=== PATIENT | female | born 1975 ===

== ENCOUNTER 2023-06-21 12:01 | Inpatient (IN) | payer OTHER ==
--- OUTSIDE RECORDS SUMMARY | 2023-06-21 16:52 | XMS REPORT | Continuity of Care Document ---
:1975 Author Organization [facility] t Address [address] [place] [address] [address] [place] [address] Care Team Providers Name Role Phone KHADAR NAV Weller Primary Care Physician Unavailable [id number] Attending Clinician Unavailable FAINA GEORGE Attending Clinician Unavailable [place] Attending Clinician Unavailable ERWIN ESCOBEDO Attending Clinician Unavailable [place] MD Attending Clinician [phone] Faina George MD Attending Clinician Unavailable Miguel Alarcon MD Attending Clinician SHEILA BUSH Attending Clinician Unavailable Javier Orozco MD Attending Clinician [phone] Lenny Price Attending Clinician [phone] MD MAIK Attending Clinician Unavailable LENNY FREITAS Attending Clinician Unavailable YANETH MORALES Attending Clinician Unavailable DARWIN FEILX Attending Clinician Unavailable [id number] Attending Clinician Unavailable Bala Alberts DO Attending Clinician BALA ALBERTS Attending Clinician Unavailable [id number] Admitting Clinician Unavailable FAINA GEORGE Admitting Clinician Unavailable BALA ALBERTS Admitting Clinician Unavailable Payers Payer Name Policy Type Policy Number Effective Date Expiration Date S ource MISZ MISZ [id number] [employer] EXCHANGE [id number] 2022 00:00:00 [employer] MP CVS 9 [id number] 2022 SILVER 2: 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 ON [facility] [id number] 2017 CHOICE MEDICAID 00:00:00 Problems Condition Condition Condition Status Onset Resolution Last Treating Co mments Source Name Details Category Date Date Treatment Clinician Date Acute pain Acute pain Disease Active [facility]11 [facility] 00 Center Infection Infection Disease Active [facility] following following 06-11 [facility] a a 00:00: Medical procedure, procedure, 00 Ce nter deep deep incisional incisional surgical surgical site, site, initial initial encounter encounter Closed Closed Disease Active [facility] displaced displaced 05-05 [facility] bicondylar bicondylar 00:00: Me dical fracture fracture 00 Center of right of right tibia, tibia, initial initial encounter encounter Fracture Fracture Disease [facility] Center Closed Closed Disease Active [facility] bicondylar bicondylar 05-05 Dayan[facility] kes fracture fracture 00:00: Medica l of right of right 00 Center tibial tibial plateau plateau Prediabete Prediabete Disease Active K elsey s s 1-19 Seybold 00:00: - 00 Externa l Follow-up Follow-up Disease Active Overview: [facility] n, n, 00:00: g of this [place] following following 00 note Medi zeny other other might be Branch surgery surgery different from the original. D & C No known No known Disease Kelse y active active Seybold problems problems - Externa l Allergies, Adverse Reactions, Alerts Allergy Allergy Status Severity Reaction(s) Onset Inactive Treating Comm ents Source Name Type Date Date Clinician PENICILL Allergy Active High Hives [facility] IN 05-04 [facility] 00:[facility]: Medical 00 Center SULFAMET Allergy Active [facility] HOXAZOLE 05-04 [facility] -TRIMETH 00:00: Medical OPRIM 00 Center Sulfamet Propensi Active diarrhea [facility] hoxazole ty to 05-04 [facility] -Trimeth adverse 00:00: Medical oprim reaction 00 Center s Penicill Propensi Active Hives As an [facility] in ty to 05-04 [facility] adverse 00:00: Medical reaction 00 Center s Penicill Propensi Active Rash Univer s ins ty to 05-14 ity of adverse 00:00: [place] reaction 00 Medical s Branch PENICILL Drug Active Rash Univers INS Class 8-17 ity of 00:00: [place] 00 Medical Branch SULFA Drug Active Swelling Univers (SULFONA Class 8-17 ity of MIDE 00:00: [place] ANTIBIOT 00 Medical ICS) Branch Penicill Propensi Active Rash Nubia ins ty to 05-14 Seybold adverse 00:00: - reaction 00 Externa s l Sulfa Propensi Active Swelling Nubia Drugs ty to 05-14 Seybold adverse 00:00: - reaction 00 Externa s l NO KNOWN Allergy Active [facility] Social History Social Habit Start Date Stop Date Quantity Comments Source Gender identity Nubia burk - External Sexual orientation Nubia [place] - External History of tobacco Cigarette [facility] Alcohol intake 2023-06-15 2023-06-15 [facility]00 [facility] alcohol Medical Center (finding) Exposure to 2023-06-01 2023-06-[address] [facility] SARS-CoV-2 (event) 00:00:00 18:29:00 [facility] Tobacco use and 2023-05-04 2023-05-04 [address] [facility] exposure 00:00:00 00:00:00 non-user Medical Center Alcohol Comment 2023-05-04 2023-05-[address] Dayanara kes 00:00:00 00:00:00 Medical Center History of Social 2022-10-14 2022-10-14 [place]ubia [place] function 00:00:00 00:00:00 - External Cigarettes smoked 2022-10-14 2022-10-14 Nubia [place] current (pack per 00:00:00 00:00:00 - Exter nal day) - Reported Cigarette 2022-10-14 2022-10-14 Nubia [place] pack-years 00:00:00 00:00:00 - External Sex Assigned At [birth year] [facility] krunals 00:00:00 00:00:00 Medical Center Smoking Status Start Date Stop Date Source Smokes tobacco daily 2023-05-04 00:00:00 [facility] Medications Ordered Filled Start Stop Current Ordering Indication Dosage Frequency Signature Comments Components Source Medication Medication Date Date Medication? Clinician (SIG) Name Name acetaminoph Yes 500mg Take [address] [facility] en 9-24 tablet [facility] (TYLENOL) 15:40: (500 mg Medic al 500 MG 59 total) by Center tablet mouth every 6 (six) hours as needed for Pain. aspirin 325 0 Yes 325mg QD Take [address] [facility] [address] MG tablet 9-24 tablet [facility] 15:40: (325 mg Medical 59 total) by Center mouth daily. levothyroxi 0 Yes 88ug Take [address] [facility] ne 9-24 tablet (88 [facility] (SYNTHROID, 15:40: mcg total) Medical LEVOTHROID) 59 by mouth Cent er 88 MCG Every tablet morning on an empty stomach. docusate 0 Yes 100mg Q.5D Take [address] [facility] sodium 9-24 capsule [facility] (COLACE) 15:40: (100 mg Medica l 100 MG 59 total) by Center capsule mouth 2 (two) times daily. acetaminoph Yes 500mg Take [address] [facility] en 8-13 tablet [facility] (TYLENOL) 13:18: (500 mg Medic al 500 MG 27 total) by Center tablet mouth every 6 (six) hours as needed for Pain. aspirin 325 0 Yes 325mg QD Take [address] [facility] MG tablet 8-13 tablet [facility] 13:18: (325 mg Medical 27 total) by Center mouth daily. levothyroxi 2022-0 Yes 88ug Take [address] [facility] ne 8-13 tablet (88 [facility] (SYNTHROID, 13:18: mcg total) Medical LEVOTHROID) 27 by mouth Cent er 88 MCG Every tablet morning on an empty stomach. docusate 2022-0 Yes 100mg Q.5D Take [address] [facility] sodium 8-13 capsule [facility] (COLACE) 13:18: (100 mg Medica l 100 MG 27 total) by Center capsule mouth 2 (two) times daily. acetaminoph 2023-0 Yes 500mg Take [address] [facility] en 8-13 tablet [facility] (TYLENOL) 13:18: (500 mg Medic al 500 MG 27 total) by Center tablet mouth every 6 (six) hours as needed for Pain. aspirin 325 2023-0 Yes 325mg QD Take [address] [facility] MG tablet 8-13 tablet [facility] 13:18: (325 mg Medical 27 total) by Center mouth daily. levothyroxi 2023-0 Yes 88ug Take [address] [facility] ne 8-13 tablet (88 [facility] (SYNTHROID, 13:18: mcg total) Medical LEVOTHROID) 27 by mouth Cent er 88 MCG Every tablet morning on an empty stomach. docusate 2023-0 Yes 100mg Q.5D Take [address] [facility] sodium 8-13 capsule [facility] (COLACE) 13:18: (100 mg Medica l 100 MG 27 total) by Center capsule mouth 2 (two) times daily. acetaminoph 2023-0 Yes 500mg Take [address] [facility] en 8-13 tablet [facility] (TYLENOL) 13:18: (500 mg Medic al 500 MG 27 total) by Center tablet mouth every 6 (six) hours as needed for Pain. aspirin 325 3-0 Yes 325mg QD Take [address] [facility] [address] MG tablet 8-13 tablet [facility]ukes 13:18: (325 mg Medical 27 total) by Center mouth daily. levothyroxi 2023-0 Yes 88ug Take [address] [facility] ne 8-13 tablet (88 [facility] (SYNTHROID, 13:18: mcg total) Medical LEVOTHROID) 27 by mouth Cent er 88 MCG Every tablet morning on an empty stomach. docusate 2023-0 Yes 100mg Q.5D Take [address] [facility] [address] sodium 8-13 capsule [facility] (COLACE) 13:18: (100 mg Medica l 100 MG 27 total) by Center capsule mouth 2 (two) times daily. oxyCODONE 2022-0 2022- No 15mg Take 1 [facility] (ROXICODONE 8-13 08-13 tablet (15 L ukes ) 15 MG 11:24: 00:00 mg total) Medi zney immediate 49 :00 by mouth Center release every 4 tablet (four) hours as needed for Pain. Max Daily Amount: 90 mg oxyCODONE 2022-0 2022- No 15mg Take 1 [facility] (ROXICODONE 8- 08-13 tablet (15 L ukes ) 15 MG 11:24: 00:00 mg total) Medi zeny immediate 49 :00 by mouth Center release every 4 tablet (four) hours as needed for Pain. Max Daily Amount: 90 mg oxyCODONE 3-0 2023- No 15mg Take 1 [facility] (ROXICODONE 8- 08-13 tablet (15 L ukes ) 15 MG 11:24: 00:00 mg total) Medi zeny immediate 49 :00 by mouth Center release every 4 tablet (four) hours as needed for Pain. Max Daily Amount: 90 mg oxyCODONE 2022-0 3- No 15mg Take 1 [facility] (ROXICODONE 8-10 05-13 tablet (15 L ukes ) 15 MG 11:24: 00:00 mg total) Medi zeny immediate 49 :00 by mouth Center release every 4 tablet (four) hours as needed for Pain. Max Daily Amount: 90 mg gabapentin 2022-2023- Yes 300mg Q.[id number] Take [address] [facility] [address] (NEURONTIN) 05-10- [id number] capsule [facility] 300 MG 00:00: 23:59 3D (300 mg Medical capsule 00 :00 total) by Center mouth 3 (three) times daily. gabapentin 2022-0 2023- Yes 300mg Q.[id number] Take [address] [facility] [address] (NEURONTIN) 05-10- [id number] capsule [facility] 300 MG 00:00: 23:59 3D (300 mg Medical capsule 00 :00 total) by Center mouth 3 (three) times daily. gabapentin 2022-0 2023- Yes 300mg Q.[id number] Take [address] [facility] (NEURONTIN) 05-10- [id number] capsule [facility] 300 MG 00:00: 23:59 3D (300 mg Medical capsule 00 :00 total) by Center mouth 3 (three) times daily. gabapentin 2022-0 2023- Yes 300mg Q.[id number] Take [address] [facility] (NEURONTIN) 05-10- [id number] capsule [facility] 300 MG 00:00: 23:59 3D (300 mg Medical capsule 00 :00 total) by Center mouth 3 (three) times daily. acetaminoph 2023- Yes 650mg Take [address] en 05-10- tablets [facility] (TYLENOL) 00:00: 23:59 (650 mg Medi zeny 325 MG 00 :00 total) by Center tablet mouth every 4 (four) hours as needed (> 101F) for up to 360 days. acetaminoph 2023- Yes 650mg Take [address] en 05-10- tablets [facility] (TYLENOL) 00:00: 23:59 (650 mg Medi zeny 325 MG 00 :00 total) by Center tablet mouth every 4 (four) hours as needed (> 101F) for up to 360 days. acetaminoph 2023- Yes 650mg Take [address] en 05-10 tablets [facility] (TYLENOL) 00:00: 23:59 (650 mg Medi zeny 325 MG 00 :00 total) by Center tablet mouth every 4 (four) hours as needed (> 101F) for up to 360 days. acetaminoph 2023- Yes 650mg Take [address] en 05-10 tablets [facility] (TYLENOL) 00:00: 23:59 (650 mg Medi zeny 325 MG 00 :00 total) by Center tablet mouth every 4 (four) hours as needed (> 101F) for up to 360 days. Aspirin 325 2022- Yes 325mg Take 1 Ke lsey MG oral 7- 08-24 tablet Seybold Tablet 00:00: 04:59 (325 mg - 00 :00 total) by Externa mouth l daily Levothyroxi Yes [id number] 88ug Take 1 Nubia ne Sodium 6-02 tablet (88 Seyb old 88 MCG oral 00:00: mcg total) - Tablet 00 by mouth Externa daily l Levalbutero Yes [id number] .63mg Q4H TAKE 3 ML Nubia l HCl 0.63 4-04 (0.63 MG Seybo ld MG/3ML 00:00: TOTAL) BY - inhalation 00 NEBULIZATI Ext jennifer Inhalant ON EVERY 4 l Solution HOURS NEEDED FOR WHEEZING Levalbutero Yes [id number] .63mg Q4H Take 3 mL Nubia l HCl 1-17 (0.63 mg Seybold (Xopenex) 00:00: total) by - 0.63 MG/3ML 00 nebulizati Ex terna inhalation on every 4 l Inhalant hours as Solution needed for wheezing Varenicline Yes [id number] 1{box} Take 1 box Nubia Tartrate, 1-17 by mouth Seybol d Starter, 00:00: daily Take - (Chantix 00 as Externa Starting directed l Month Krzysztof) 0.5 MG X 11 & 1 MG X 42 oral Tablet Therapy Pack Levothyroxi 2021-09 Yes [id number] 88ug Take 88 Nubia ne Sodium 2-01 mcg by Seybold 88 MCG oral 00:00: mouth - Tablet 00 daily Externa l ketorolac No 30mg 30 mg, Unive rs (TORADOL) 06-11 Intramuscu ity of injection 00:45: 00:58 lar, ONCE, [place] 30 mg 00 :00 1 dose, On Medical Tue Branch 06/10/22 at 1945, ANITA ibuprofen Yes [id number] 600mg Take 1 Univers 600 mg 06-10 [id number] tablet by ity of tablet 00:00: mouth [place] 00 every 6 Medical (six) Branch hours as needed for Pain (scale 4-6). ibuprofen No [id number] 600mg Take 1 Univers 600 mg 06-10 [id number] tablet by ity o f tablet 00:00: 00:00 mouth [place] 00 :00 every 6 Medical (six) Branch hours as needed for Pain (scale 4-6) for up to 30 doses. Vital Signs Vital Name Observation Time Observation Value Comments Source HEIGHT 2023-06-11 18:37:00 162.6 cm WEIGHT 2023-06-11 18:37:00 89.4 kg HEIGHT 2023-06-11 18:37:00 162.6 cm WEIGHT 2023-06-11 18:37:00 89.4 kg HEIGHT 2023-06-11 18:37:00 162.6 cm WEIGHT 2023-06-11 18:37:00 89.4 kg HEIGHT 2023-05-05 06:06:00 162.6 cm WEIGHT 2023-05-05 06:06:00 87.7 kg HEIGHT 2023-05-04 09:53:00 162.6 cm WEIGHT 2023-05-04 09:53:00 86.183 kg HEIGHT 2023-05-05 06:06:00 162.6 cm WEIGHT 2023-05-05 06:06:00 87.7 kg HEIGHT 2023-05-04 09:53:00 162.6 cm WEIGHT 2023-05-04 09:53:00 86.183 kg HEIGHT 2023-05-05 06:06:00 162.6 cm WEIGHT 2023-05-05 06:06:00 87.7 kg HEIGHT 2023-05-04 09:53:00 162.6 cm WEIGHT 2023-05-04 09:53:00 86.183 kg Systolic blood 2022-10-14 15:11:00 110 mm[Hg] Nubia Seybold - pressure External Diastolic blood 2022-10-14 15:11:00 76 mm[Hg] Nicolás y Seybold - pressure External Heart rate 2022-10-14 15:11:00 91 /min Nubia Mayo eybold - External Body temperature 2022-10-14 15:11:00 36.39 Tanya Constance ey Seybold - External Respiratory rate 2022-10-14 15:11:00 14 /min Constance ey Seybold - External Body height 2022-10-14 15:11:00 160 cm Nubia Mayo eybold - External Body weight 2022-10-14 15:11:00 95.709 kg Nubia Mayo eybold - External BMI 2022-10-14 15:11:00 37.38 kg/m2 Nubia loaizabold - External Systolic blood 2022-06-11 00:36:00 131 mm[Hg] Univer sity of pressure [facility] Diastolic blood 2022-06-11 00:36:00 97 mm[Hg] Unive rsity of pressure [facility] Heart rate 2022-06-11 00:36:00 110 /min Universi ty [facility] Body temperature 2022-06-11 00:36:00 37.06 Tanya Univ ersity of [facility] Respiratory rate 2022-06-11 00:36:00 16 /min Univ ersity [facility] Body weight 2022-06-11 00:36:00 95.255 kg [facility] ty [facility] [place] [facility] Oxygen saturation in 2022-06-11 00:36:00 97 /min University Arterial blood by [facility] Pulse oximetry Branch Heart rate 2023-06-21 13:03:07 109 /min [facility] Respiratory rate 2023-06-21 13:03:07 18 /min [facility] Oxygen saturation in 2023-06-21 13:03:07 97 /min [facility] Arterial blood by Medical Ce nter Pulse oximetry Body temperature 2023-06-21 13:02:39 36.61 Tanya [facility] Systolic blood 2023-06-21 13:02:30 98 mm[Hg] [facility] Diastolic blood 2023-06-21 13:02:30 67 mm[Hg] [facility] Body height 2023-06-11 18:37:00 162.6 cm [facility] Body weight 2023-06-11 18:37:00 89.4 kg [facility] BMI 2023-06-11 18:37:00 33.83 kg/m2 [facility] Heart rate 2023-05-10 11:39:20 103 /min [facility] Respiratory rate 2023-05-10 11:39:20 18 /min [facility] Oxygen saturation in 2023-05-10 11:39:20 99 /min [facility] Arterial blood by Medical Ce nter Pulse oximetry Body temperature 2023-05-10 11:38:23 37.5 Tanya [facility] Systolic blood 2023-05-10 11:38:15 108 mm[Hg] [facility] Diastolic blood 2023-05-10 11:38:15 74 mm[Hg] [facility] Body height 2023-05-05 06:06:00 162.6 cm [facility] Body weight 2023-05-05 06:06:00 87.7 kg [facility] BMI 2023-05-05 06:06:00 33.19 kg/m2 [facility] Procedures Procedure Date / Time Performing Clinician Source Performed BASIC METABOLIC PANEL 2023-06-21 12:55:00 ArielFaina Ty [facility] CBC (HEMOGRAM ONLY) 2023-06-21 12:55:00 KelvingeethasylLeviar [facility] BASIC METABOLIC PANEL 2023-06-16 04:56:00 Melinda Baker [facility] C-REACTIVE PROTEIN 2023-06-16 04:56:00 Ki Hernandez [facility] VANCOMYCIN LEVEL, TROUGH 2023-06-15 10:25:00 Rosalino [facility] ECG 12-LEAD 2023-06-12 16:04:25 Miguel Alarcon [facility] FUNGUS CULTURE + SMEAR 2023-06-12 11:37:00 Faina [facility] SURGICALLY OBTAINED 2023-06-12 11:37:00 [facility] CULTURE + GRAM STAIN Center ANAEROBIC CULTURE 2023-06-12 11:37:00 [facility] Faina [facility] AFB CULTURE + SMEAR 2023-06-12 11:37:00 [facility] (NON-SPUTUM) Center SPIN/CONCENTRATION 2023-06-12 11:37:00 Ariel Faina [facility] IRRIGATION AND 2023-06-12 10:40:00 [facility] DEBRIDEMENT, WOUND, Center INFECTED, POSTOPERATIVE, COMPLEX XR KNEE COMPLETE 4 VIEWS 2023-06-11 19:36:[address] [facility] C-REACTIVE PROTEIN 2023-06-11 19:22:[address] [facility] BLOOD CULTURE 2023-06-11 19:08:00 Aleksandra [facility] BLOOD CULTURE 2023-06-11 18:58:00 Aleksandra [facility] CBC W/PLT COUNT & AUTO 2023-06-11 18:58:00 Aleksandra [facility] DIFFERENTIAL [facility] LACTIC ACID, VENOUS 2023-06-11 18:58:[address] [facility] COMPREHENSIVE METABOLIC 2023-06-11 18:58:00 Aleksandra [facility] PANEL [facility] PROTHROMBIN TIME/INR 2023-06-11 18:58:[address] [facility] APTT 2023-06-11 18:58:00 Aleksandra [facility] HCG, QUANTITATIVE, 2023-06-11 18:58:00 Aleksandra [facility] TYPE AND SCREEN, 2023-06-11 18:58:00 Aleksandra [facility] AUTOMATED [facility] CBC W/PLT COUNT & AUTO 2023-06-11 18:58:00 Aleksandra, [facility] DIFFERENTIAL [facility] ANESTHESIA PERIPHERAL 2023-05-05 13:45:23 Javier Orozco [facility] BLOCK [facility] FL FLUORO NON-SPECIFIC 2023-05-05 11:00:00 Faian George [facility] UP TO 1 HOUR Center TISSUE EXAM 2023-05-05 08:52:00 Faina George [facility] ORIF, FRACTURE, TIBIA 2023-05-05 07:29:00 Faina George [facility] PROCEDURE W/ C-ARM 2023-05-05 07:29:00 Faina George [facility] TYPE AND SCREEN, 2023-05-05 06:29:00 Faina George [facility] POCT , URINE 2023-05-05 06:25:00 Faina George [facility] XR FOOT 3+ VW RIGHT 2022-06-11 00:52:00 Bala Alberts [facility] CONSENT/REFUSAL FOR 2022-06-11 00:12:06 Doctor Unassigned, No Un [facility] DIAGNOSIS AND TREATMENT Name Medical Branch Plan of Care Planned Activity Planned Date Details Comments Source Future Scheduled 2023-05-29 Influenza Vaccine (#1) [facility] 00:00:00 [code = Influenza Vaccine Me dical Center (#1)] Future Scheduled 2023-05-29 Influenza Vaccine (#1) [facility] 00:00:00 [code = Influenza Vaccine Me dical Center (#1)] Future Scheduled 2023-05-29 Influenza Vaccine (#1) [facility] 00:00:00 [code = Influenza Vaccine Me dical Center (#1)] Future Scheduled 2023-05-29 Influenza Vaccine (#1) [facility] 00:00:00 [code = Influenza Vaccine Me dical Center (#1)] Future Scheduled 2022-09-[address] [facility] Test 00:00:00 (12+) [code = DEPRESSION Med ical Center SCREENING (12+)] Future Scheduled 2022-09-[address] [facility] Test 00:00:00 (12+) [code = DEPRESSION Med ical Center SCREENING (12+)] Future Scheduled 2022-09-[address] [facility] Test 00:00:00 (12+) [code = DEPRESSION Med ical Center SCREENING (12+)] Future Scheduled 2022-09-[address] [facility] Test 00:00:00 (12+) [code = DEPRESSION Med ical Center SCREENING (12+)] Future Scheduled 2022 Lipid panel (procedure) [facility] Test 00:00:00 [code = [id number]] Medical Ce nter Future Scheduled 2022 Lipid panel (procedure) [facility] Test 00:00:00 [code = 18679537] Medical Ce nter Future Scheduled 2022 Lipid panel (procedure) [facility] Test 00:00:00 [code = [id number]] Medical Ce nter Future Scheduled 2022 Lipid panel (procedure) [facility] Test 00:00:00 [code = [id number]] Medical Ce nter Future Scheduled 1998 Screening for malignant [facility] Test 00:00:00 neoplasm of cervix Medical C enter (procedure) [code = 180254064] Future Scheduled 1998 Screening for malignant [facility] Test 00:00:00 neoplasm of cervix Medical C enter (procedure) [code = 392641631] Future Scheduled 1998 Screening for malignant [facility] Test 00:00:00 neoplasm of cervix Medical C enter (procedure) [code = 914017273] Future Scheduled 1998 Screening for malignant [facility] Test 00:00:00 neoplasm of cervix Medical C enter (procedure) [code = 621455969] Future Scheduled 1996 DTAP/TDAP/TD VACCINES ([address] [facility] Test 00:00:00 - Tdap) [code = Medical Cent er DTAP/TDAP/TD VACCINES (1 - Tdap)] Future Scheduled 1996 DTAP/TDAP/TD VACCINES ([address] [facility] Test 00:00:00 - Tdap) [code = Medical Cent er DTAP/TDAP/TD VACCINES (1 - Tdap)] Future Scheduled 1996 DTAP/TDAP/TD VACCINES ([address] [facility] Test 00:00:00 - Tdap) [code = Medical Cent er DTAP/TDAP/TD VACCINES (1 - Tdap)] Future Scheduled 1996 DTAP/TDAP/TD VACCINES ([address] [facility] Test 00:00:00 - Tdap) [code = Medical Cent er DTAP/TDAP/TD VACCINES (1 - Tdap)] Future Scheduled 1995 HEPATITIS C [facility]CRE[facility]ING [facility] 00:00:00 [code = HEPATITIS C Medical Center SCREENING] Future Scheduled 1995 HEPATITIS C [facility]CRE[facility]ING [facility] 00:00:00 [code = HEPATITIS C Medical Center SCREENING] Future Scheduled 1995 HEPATITIS C [facility]CRE[facility]ING [facility] 00:00:00 [code = HEPATITIS C Medical Center SCREENING] Future Scheduled 1995 HEPATITIS C [facility]ING [facility] 00:00:00 [code = HEPATITIS C Medical Center SCREENING] Future Scheduled [address] Human immunodeficiency [facility] 00:00:00 virus screening Medical Cent er (procedure) [code = 398575149] Future Scheduled [address] Human immunodeficiency [facility] 00:00:00 virus screening Medical Cent er (procedure) [code = 616083191] Future Scheduled [address] [facility] 00:00:00 virus screening Medical Cent er (procedure) [code = [id number]] Future Scheduled [address] immunodeficiency [facility] 00:00:00 virus screening Medical Cent er (procedure) [code = 949198949] Future Scheduled [address] [facility] Test 00:00:00 Counseling and Screening Med ical Center (12+) [code = Tobacco Cessation Counseling and Screening (12+)] Future Scheduled [address] [facility] Test 00:00:00 Counseling and Screening Med ical Center (12+) [code = Tobacco Cessation Counseling and Screening (12+)] Future Scheduled [address] [facility] Test 00:00:00 Counseling and Screening Med ical Center (12+) [code = Tobacco Cessation Counseling and Screening (12+)] Future Scheduled [address] [facility] Test 00:00:00 Counseling and Screening Med [facility] (12+) [code = Tobacco Cessation Counseling and Screening (12+)] Future Scheduled 1983 Pneumococcal Vaccine: [facility] 00:00:00 0-64 Years (1 - PCV) Medical Center [code = Pneumococcal Vaccine: 0-64 Years (1 - PCV)] Future Scheduled 1983 Pneumococcal Vaccine: [facility] 00:00:00 0-64 Years (1 - PCV) Medical Center [code = Pneumococcal Vaccine: 0-64 Years (1 - PCV)] Future Scheduled 1983 Pneumococcal Vaccine: [facility] 00:00:00 0-64 Years (1 - PCV) Medical Center [code = Pneumococcal Vaccine: 0-64 Years (1 - PCV)] Future Scheduled 1983 Pneumococcal Vaccine: [facility] 00:00:00 0-64 Years (1 - PCV) [facility] [code = Pneumococcal Vaccine: 0-64 Years (1 - PCV)] Future Scheduled 1978-02-26 COVID-19 VACCINE (#1) [facility] [code = COVID-19 VACCINE [facility] (#1)] Future Scheduled 1978-02-26 COVID-19 VACCINE (#1) [facility] [code = COVID-19 VACCINE [facility] (#1)] Future Scheduled 1978-02-26 COVID-19 VACCINE (#1) [facility] [code = COVID-19 VACCINE [facility] (#1)] Future Scheduled 1978-02-26 COVID-19 VACCINE (#1) [facility] [code = COVID-19 VACCINE [facility] (#1)] Future Scheduled 1977 Screening for malignant [facility] 00:00:00 neoplasm of colon [facility] Ce [facility] (procedure) [code = 184186363] Future Scheduled 1977 Screening for malignant [facility] 00:00:00 neoplasm of colon [facility] (procedure) [code = 457514836] Future Scheduled 1977 Screening for malignant [facility] 00:00:00 neoplasm of colon [facility] (procedure) [code = 279229018] Future Scheduled 1977 Screening for malignant [facility] 00:00:00 neoplasm of colon Medical Ce [facility] (procedure) [code = 719416547] Future Scheduled 1975 Sigmoidoscopy [code = [facility] S[facility]oidoscopy] [facility] Future Scheduled 1977 CT Colonography (combo) [facility] 00:[facility] [code = CT Colonography [facility] (combo)] Future Scheduled 1977 Screening for malignant [facility] 00:00:00 neoplasm of colon Medical Ce [facility] (procedure) [code = 462820171] Future Scheduled 1977 Screening for malignant [facility] 00:00:00 neoplasm of colon Medical Ce [facility] (procedure) [code = 871085463] Future Scheduled 1977 Screening for malignant [facility] 00:00:00 neoplasm of colon Medical Ce [facility] (procedure) [code = 226432085] Future Scheduled 1977 Screening for malignant [facility] 00:00:00 neoplasm of colon Medical Ce [facility] (procedure) [code = 235205784] Future Scheduled 1975 Sigmoidoscopy [code = [facility] S[facility]oidoscopy] [facility] Future Scheduled 1977 CT Colonography (combo) [facility] 00:00:00 [code = CT [facility])] Future Scheduled 1977 Screening for malignant [facility] 00:00:00 neoplasm of colon Medical Ce [facility] (procedure) [code = 294166918] Future Scheduled 1977 Screening for malignant [facility] 00:00:00 neoplasm of colon Medical Ce [facility] (procedure) [code = 034960064] Future Scheduled [address] Screening for malignant [facility] 00:00:00 neoplasm of colon Medical Ce [facility] (procedure) [code = 174388473] Future Scheduled 1977 Screening for malignant [facility] 00:00:00 neoplasm of colon [facility] Ce [facility] (procedure) [code = 977289992] Future Scheduled 1975 Sigmoidoscopy [code = [facility] S[facility]oscopy] [facility] Future Scheduled 1977 CT Colonography (combo) [facility] 00:00:00 [code = CT [facility])] Future Scheduled 1977 CT Colonography (combo) [facility] 00:00:00 [code = CT [facility] ([facility]bo)] Future Scheduled 1977 Screening for malignant [facility] 00:00:00 neoplasm of colon Medical Ce [facility] (procedure) [code = 370371893] Future Scheduled 1977 Screening for malignant [facility] 00:00:00 neoplasm of colon Medical Ce [facility]ter (procedure) [code = 369421384] Future Scheduled [address] Screening for malignant [facility] 00:00:00 neoplasm of colon Medical Ce [facility]ter (procedure) [code = 737701422] Future Scheduled 1977 Screening for malignant [facility] 00:00:00 neoplasm of colon Medical Ce [facility]ter (procedure) [code = 201931740] Future Scheduled 1975 Sigmoidoscopy [code = [facility] S[facility]oscopy] Medical Ross r Encounters Start End Encounter Admission Attending Care Care Encounter Source Date/Time Date/Time Type Type Clinicians Facility Department ID 2023-06-19 Outpatient 3 [id number] ENC[facility] REF [id number] [facility] 10:24:39 0922 [facility] Rehabil itation Talita lai 2023-06-11 Inpatient ATASSI, [facility] Surgery [id number] SLE 19:48:53 FAINA 2023-06-11 Inpatient ER ALEKSANDRA, [facility] [id number] [facility] 19:03:01 NIXON 2023-06-23 2023-06-23 Outpatient NUBIA ESCOBEDO [id number] [place] 11:00:00 11:00:00 ERWIN Gatesol ming 2023-06-11 2023-06-21 [facility] AleksandraNixon [facility] [id number] [facility] 18:27:00 15:40:00 Encounter Isisyl Faina [facility] 2023-06-11 2023-06-21 Inpatient ER ATASENA, [facility] Surgery [id number] SLE 18:27:00 15:40:00 DAWSON 2023-06-12 2023-06-12 Anesthesia Dianeter, [facility] [id number] 10:55:00 12:47:00 Event Miguel Lopezon [facility] 2023-06-12 2023-06-12 Surgery Ariel, [facility] [id number] 10:00:00 11:30:00 [facility] 2023-06-11 2023-06-[address] [facility] [id number] [facility] 00:[facility] 00:00:00 [facility] 2023-06-05 2023-06-05 Outpatient NUBIA ESCOBEDO [id number] [place] 00:00:00 00:00:00 ERWIN Seybol ming 2023-05-30 2023-05-30 Outpatient NUBIA MONSIVAIS [id number] [facility] 00:00:00 00:00:00 Seybol ming 2023-05-13 2023-05-13 Outpatient NUBIA BUSH [id number] [facility] 00:00:00 00:00:00 SHEILA Seybol ming 2023-05-11 2023-05-11 Outpatient YONATANJOHNIEGael NUBIA MONSIVAIS [id number] [place] 00:00:00 00:00:00 SHEILA Gatesol ming 2023-05-05 [facility]23[facility]05-10 [facility] [id number] 05:33:00 13:17:00 Encounter [facility] 2023-05-05 2023-05-10 [facility] [id number] 05:33:00 13:17:00 Encounter [facility] 2023-05-05 2023-05-10 Inpatient EL ARIEL [facility] Surgery [id number] SLE 05:33:00 13:17:00 DAWSON 2023-05-07 2023-05-07 Outpatient NUBIA MONSIVAIS [id number] [facility] 00:00:00 00:00:00 Pipe lai 2023-05-05 2023-05-05 Outpatient ARIEL [facility] SLE [id number] SLE 12:49:50 12:49:50 DAWSON 2023-05-05 2023-05-05 [facility] [id number] [facility] 07:29:00 11:21:00 Event [facility] 2023-05-05 2023-05-05 [id number] 07:29:00 11:21:00 Event Echo [facility] 2023-05-05 2023-05-[address] [facility], [facility] [id number] 07:30:00 11:05:00 [facility] 2023-05-05 2023-05-[address] [facility], [facility] [id number] 07:30:00 11:05:00 [facility] 2023-05-05 2023-05-[address] [facility] [id number] [facility] 00:[facility] 00:00:00 [facility] 2023-05-05 2023-05-[address] [facility] [id number] [facility] 00:[facility]00 00:00:00 [facility] 2023-05-04 2023-05-04 Outpatient NUBIA MONSIVAIS [id number] [place] 00:00:00 00:00:00 Seybol d 2023-05-04 2023-05-04 Outpatient EL SLE [facility] [id number] [facility] 00:00:00 00:00:00 2023-05-04 2023-05-[address] [facility] [id number] [facility] 00:[facility] 00:00:00 [facility] 2023-05-04 2023-05-[address] [facility] [id number] [facility] 00:[facility] 00:00:00 [facility] 2023-05-01 2023-05-01 Outpatient NUBIA MONSIVAIS [id number] [facility] 00:00:00 00:00:00 Seybol d 2023-05-01 2023-05-01 Outpatient SHRUTHI MONSIVAIS [id number] [facility] 00:00:00 00:00:00 MD ALEXANDRIA Seybol d 2023-04-30 2023-04-30 Outpatient NUBIA MONSIVAIS [id number] [facility] 15:45:00 15:45:00 Seybol d 2023-04-30 2023-04-30 Outpatient NUBIA FREITAS [id number] [facility] 09:40:00 09:40:00 LENNY Seybol d 2023-04-30 2023-04-30 Outpatient NUBIA MONSIVAIS [id number] [facility] 09:05:00 09:05:00 Seybol d 2023-04-27 2023-04-27 Outpatient NUBIA FREITAS [id number] [facility] 00:00:00 00:00:00 LENNY Seybol d 2023-04-23 2023-04-23 Outpatient NUBIA ESCOBEDO [id number] [place] 00:00:00 00:00:00 ERWIN Seybol d 2023-03-16 2023-03-16 Outpatient MATT GUTIERREZ [id number] Yaw 13:10:58 13:10:58 [id number] [place] 2023-02-26 2023-02-26 Outpatient GREGG NUBIA MONSIVAIS [id number] [place] 00:00:00 00:00:00 ERWIN Seybol d 2022-12-30 2022-12-30 Outpatient GREGG NUBIA MONSIVAIS [id number] [place] 00:00:00 00:00:00 ERWIN Seybol d 2022-12-22 2022-12-22 Outpatient GREGG NUBIA MONSIVAIS [id number] [place] 00:00:00 00:00:00 ERWIN Seybol d 2022-11-26 2022-11-26 Outpatient ANDREW NUBIA MONSIVAIS [id number] [place] 10:00:00 10:00:00 YANETH Seybo ld 2022-11-17 2022-11-17 Outpatient CELINAMaria Eugenia NUBIA MONSIVAIS [id number] [place] 14:00:00 14:00:00 ERWIN Seybol d 2022-11-09 2022-11-09 Outpatient GREGG NUBIA MONSIVAIS [id number] [place] 00:00:00 00:00:00 ERWIN Seybol d 2022-10-21 2022-10-21 Outpatient ELVIRADARWIN Rodriguez NUBIA MONSIVAIS [id number] [facility] 09:20:00 09:20:00 Seybol d 2022-10-16 2022-10-16 Outpatient GREGG NUBIA MONSIVAIS [id number] [place] 00:00:00 00:00:00 ERWIN Seybol d 2022-10-15 2022-10-15 Outpatient LAB90 NUBIA MONSIVAIS [id number] [place] 09:05:00 09:05:00 Seybol d 2022-10-14 2022-10-14 Outpatient GREGG NUBIA MONSIVAIS [id number] [place] 09:00:00 09:00:00 ERWIN Seybol d 2022-06-10 2022-06-10 Emergency Lexus [facility] [id number] [facility] 19:39:00 20:38:00 Bala EUGENE [id number] i ty of [place] [id number] [facility] [id number] [place] [id number] [place] 2022-06-10 2022-06-10 Emergency X BALA ALBERTS [facility] ERT 1 [id number] [facility] 19:39:00 20:38:00 BALA ALBERTS kaylenejared [facility] Results Test Description Test Time Test Comments Results Result Comments Source BASIC METABOLIC PANEL 2023-06-21 13:29:32 Test Item Value Reference Range Interpretation Comme nts SODIUM (BEAKER) (test 138 meq/L 136-145 code = 381) POTASSIUM (BEAKER) 4.1 meq/L 3.5-5.1 (test code = 379) CHLORIDE (BEAKER) (test 104 meq/L 98-107 code = 382) CO2 (BEAKER) (test code 23 meq/L 22-29 = 355) BLOOD UREA NITROGEN 12 mg/dL 7-21 (BEAKER) (test code = 354) CREATININE (BEAKER) 0.86 mg/dL 0.57-1.25 (test code = 358) GLUCOSE RANDOM (BEAKER) 119 mg/dL 70-105 H (test code = 652) CALCIUM (BEAKER) (test 9.6 mg/dL 8.4-10.2 code = 697) EGFR (BEAKER) (test 85 mL/min/1.73 sq In terpretation of eGFR values code = 1092) m Stage Descripti on Result G1 Normal or high >=90 G2 Mildly decreased 60-89 G3a Mildly to moderately 45-5 9 G3b Moderately to severely 30- 44 G4 Severly decreased 15-29 G5 Kidney failure <15Repo rted eGFR is based on the CK D-EPI 2020 equation that d oes not use a race coefficien tEstimated GFR is not as accurate as Creatinine Clearance in pr edicting glomerular filt ration rate. Estimated GFR i s not applicable for dialysis abdelrahman pendleton [employer] ID - ADMINCBC (HEMOGRAM ONLY)2023-06-21 13:07:03 Test Item Value Reference Range Interpretation Comments WHITE BLOOD CELL COUNT (BEAKER) 7.2 K/ L 3.5-10.5 (test code = 775) RED BLOOD CELL COUNT (BEAKER) 4.16 M/ L 3.93-5.22 (test code = 761) HEMOGLOBIN (BEAKER) (test code = 10.9 GM/DL 11.2-15.7 L 410) HEMATOCRIT (BEAKER) (test code = 35.9 % 34.1-44.9 411) MEAN CORPUSCULAR VOLUME (BEAKER) 86 fL 79-95 (test code = 753) MEAN CORPUSCULAR HEMOGLOBIN 26.2 pg 25.6-32.2 (BEAKER) (test code = 751) MEAN CORPUSCULAR HEMOGLOBIN CONC 30.4 GM/DL 32.2-35.5 L (BEAKER) (test code = 752) RED CELL DISTRIBUTION WIDTH 14.2 % 11.7-14.4 (BEAKER) (test code = 412) PLATELET COUNT (BEAKER) (test 368 K/CU MM 150-450 code = 756) MEAN PLATELET VOLUME (BEAKER) 10.4 fL 9.4-12.3 (test code = 754) NUCLEATED RED BLOOD CELLS 0 /100 WBC 0-0 (BEAKER) (test code = 413) BLOOD [id number] 21:01:21 Test Item Value Reference Range Interpretation Comments CULTURE (BEAKER) (test No growth in 5 days code = 1095) BLOOD [id number] 21:01:20 Test Item Value Reference Range Interpretation Comments CULTURE (BEAKER) (test No growth in 5 days code = 1095) The specimen volume collected for this blood culture was below the optimum (10 mL per bottle or 20 mL total). Use of lower volumes may adversely affect recovery and/or detection times of some organisms.BASIC METABOLIC PANEL 2023-06-16 06:34:41 Test Item Value Reference Range Interpretation Comments SODIUM (BEAKER) 137 meq/L 136-145 (test code = 381) POTASSIUM 4.4 meq/L 3.5-5.1 (BEAKER) (test code = 379) CHLORIDE (BEAKER) 101 meq/L 98-107 (test code = 382) CO2 (BEAKER) 28 meq/L 22-29 (test code = 355) BLOOD UREA 12 mg/dL 7-21 NITROGEN (BEAKER) (test code = 354) CREATININE 0.83 mg/dL 0.57-1.25 (BEAKER) (test code = 358) GLUCOSE RANDOM 98 mg/dL 70-105 (BEAKER) (test code = 652) CALCIUM (BEAKER) 9.7 mg/dL 8.4-10.2 (test code = 697) EGFR (BEAKER) 89 Interpretati on of eGFR (test code = mL/min/1.73 values Stage De scription 1092) sq m Result G1 Eleni l or high >=90 G2 Mildly decreased 60-89 G3a Mildl y to moderately 45-5 9 G3b Moderately to s everely 30-44 G4 Severl y decreased 15-29 G5 Kidney failure <15Reported eGF R is based on the CKD-EPI 2021 equation that d oes not use a race coefficientEsti mated GFR is not as accur ate as Creatinine Mirian samson in predicting glom erular filtration rate . Estimated GFR is not appl icable for dialysis patien ts [employer] ID - MMC-REACTIVE [id number] 06:34:41 Test Item Value Reference Range Interpretation Comments C-REACTIVE PROTEIN (BEAKER) (test 4.91 mg/dL 0.00-0.50 H code = 676) [employer] ID - MMANAEROBIC [id number] 15:53:07 Test Item Value Reference Range Interpretation Comments CULTURE (BEAKER) (test No anaerobes isolated code = 1095) Anaerobic [id number] 15:51:32 Test Item Value Reference Range Interpretation Comments Result (test code = No anaerobes isolated 6463-4) [facility] [id number] 15:51:32 Test Item Value Reference Range Interpretation Comments CULTURE (BEAKER) (test No anaerobes isolated code = 1095) SURGICALLY OBTAINED CULTURE + GRAM [id number] 13:18:42 Test Item Value Reference Range Interpretation Comments CULTURE (BEAKER) PSEUDOMONAS A 2+ Pseudomo salena (test code = 1095) AERUGINOSA aeruginos a Amikacin (test code See_Comment S [Automa naomy = 1) message] The sy stem which generated this result transmitted reference range : Susceptible 0-1 6 , Resistant <0 or >16 . The reference range was not u sed to interpret th is result as normal/abnormal . Aztreonam (test See_Comment S [Automated code = 32) message] The sy stem which generated this result transmitted reference range : Susceptible 0-8 , Resistant <0 or >8 . The reference range was not u sed to interpret th is result as normal/abnormal . Cefepime (test code See_Comment S [Automa naomy = 51) message] The sy stem which generated this result transmitted reference range : Susceptible 0-8 , Resistant <0 or >8 . The reference range was not u sed to interpret th is result as normal/abnormal . Ceftazidime (test See_Comment S [Automate d code = 27) message] The sy stem which generated this result transmitted reference range : Susceptible 0-8 , Resistant <0 or >8 . The reference range was not u sed to interpret th is result as normal/abnormal . Ciprofloxacin (test See_Comment S [Automa naomy code = 7) message] The sy stem which generated this result transmitted reference range : Susceptible 0-0 .5 , Resistant <0 or >.5 . The reference range was not u sed to interpret th is result as normal/abnormal . Gentamicin (test See_Comment S [Automated code = 18) message] The sy stem which generated this result transmitted reference range : Susceptible 0-4 , Resistant <0 or >4 . The reference range was not u sed to interpret th is result as normal/abnormal . Levofloxacin (test See_Comment S [Automat ed code = 22) message] The sy stem which generated this result transmitted reference range : Susceptible 0-1 , Resistant <0 or >1 . The reference range was not u sed to interpret th is result as normal/abnormal . Meropenem (test See_Comment S [Automated code = 34) message] The sy stem which generated this result transmitted reference range : Susceptible 0-2 , Resistant <0 or >2 . The reference range was not u sed to interpret th is result as normal/abnormal . Piperacillin (test See_Comment S [Automat ed code = 24) message] The sy stem which generated this result transmitted reference range : Susceptible 0-1 6 , Resistant <0 or >16 . The reference range was not u sed to interpret th is result as normal/abnormal . Piperacillin + See_Comment S [Automated Tazobactam (test message] [employer] e system code = 29) which generated this result transmitted reference range : Susceptible 0-1 6 , Resistant <0 or >16 . The reference range was not u sed to interpret th is result as normal/abnormal . Tobramycin (test See_Comment S [Automated code = 25) message] The sy stem which generated this result transmitted reference range : Susceptible 0-4 , Resistant <0 or >4 . The reference range was not u sed to interpret is result as normal/abnormal . CULTURE (BEAKER) A 2+ Same org anism (test code = 1095) has been isolated from cultures(s ) of the same body s ite and collection date. Repeat identification and susceptibility testing perform ed only after consultation wi the clinical microbiology laboratory.Refe r to previous cultur e of - Enterobacter cloacae complex GRAM STAIN RESULT 2+ WBCs (BEAKER) (test code = 1123) GRAM STAIN RESULT No organisms seen (BEAKER) (test code = 894070) VANCOMYCIN LEVEL, [id number] 10:51:20 Test Item Value Reference Range Interpretation Comments VANCOMYCIN TROUGH (BEAKER) (test 13.2 ug/mL 10.0-20.0 code = 522) [employer] ID - MENDOZA BSURGICALLY OBTAINED CULTURE + GRAM [id number] 14:17:28 Test Item Value Reference Interpretation Comments Range CULTURE (BEAKER) (test ENTEROBACTER A 4+ En terobacter code = 1095) CLOACAE COMPLEX cloacae comp jay Amikacin (test code = S 1) Aztreonam (test code = S 32) Cefepime (test code = S 51) Cefoxitin (test code = R 68) Ceftazidime (test code S = 27) Ceftriaxone (test code S = 52) Ertapenem (test code = S 38) Gentamicin (test code S = 18) Levofloxacin (test S code = 22) Meropenem (test code = S 34) Nitrofurantoin (test S code = 23) Piperacillin + S Tazobactam (test code = 29) Tetracycline (test S code = 2) Tobramycin (test code S = 25) Trimethoprim + S Sulfamethoxazole (test code = 47) GRAM STAIN RESULT <1+ WBCs (BEAKER) (test code = 1123) GRAM STAIN RESULT No organisms seen (BEAKER) (test code = 961993) SPIN/CONCENTRATION [id number] 04:34:17 Test Item Value Reference Range Interpretation Comments Concentration charged (test code = Done 2657) [facility] [id number] 04:34:17 Test Item Value Reference Range Interpretation Comments CONCENTRATION CHARGED (BEAKER) (test Done code = 2657) SPIN/CONCENTRATION [id number] 04:31:10 Test Item Value Reference Range Interpretation Comments CONCENTRATION CHARGED (BEAKER) (test Done code = 2657) XR KNEE COMPLETE 4 VIEWS [id number] 19:51:37 [facility] : 1975 Sex: FTECHNIQUE: XR KNEE COMPLETE 4 VIEWS RIGHTINDICATION: knee pain.COMPARISON: Intraoperative fluoroscopic images 05/05/2023.FINDINGS:Prior plate and screw fixation of the proximal tibia with fracture linesremaining evident in patient's severely comminuted fracture withintra-articular extension. No evidence for hardware failure orloosening. No true lateral radiograph was performed. Soft tissueswelling about the knee.IMPRESSION:1. Status post ORIF of severely comminuted intra-articular fracture ofthe proximal tibia in near anatomic alignment without evidence forhardware complication. Fracture lines remain vi sible.Electronically Signed By: Laureano Kevin06/11/2023 19:53 CDTWorkstation Name: [id number] 19:42:56 Test Item Value Reference Range Interpretation Comments C-REACTIVE PROTEIN (BEAKER) (test 5.20 mg/dL 0.00-1.00 H code = 676) COMPREHENSIVE METABOLIC [id number] 19:33:31 Test Item Value Reference Range Interpretation Comments TOTAL PROTEIN 7.2 gm/dL 6.0-8.3 (BEAKER) (test code = 770) ALBUMIN (BEAKER) 4.1 g/dL 3.5-5.0 (test code = 1145) ALKALINE 86 U/L 40-150 PHOSPHATASE (BEAKER) (test code = 346) BILIRUBIN TOTAL 0.3 mg/dL 0.2-1.2 (BEAKER) (test code = 377) SODIUM (BEAKER) 136 meq/L 136-145 (test code = 381) POTASSIUM (BEAKER) 4.3 meq/L 3.5-5.1 (test code = 379) CHLORIDE (BEAKER) 103 meq/L 98-107 (test code = 382) CO2 (BEAKER) (test 26 meq/L 22-29 code = 355) BLOOD UREA 15 mg/dL 7-21 NITROGEN (BEAKER) (test code = 354) CREATININE 0.87 mg/dL 0.57-1.25 (BEAKER) (test code = 358) GLUCOSE RANDOM 96 mg/dL 70-105 (BEAKER) (test code = 652) CALCIUM (BEAKER) 9.0 mg/dL 8.4-10.2 (test code = 697) AST (SGOT) 19 U/L 5-34 (BEAKER) (test code = 353) ALT (SGPT) 27 U/L 6-55 (BEAKER) (test code = 347) EGFR (BEAKER) 84 Interpretati on of eGFR (test code = 1092) mL/min/1.[address] age Description sq m Result G1 Eleni l or high >=90 G2 Mildly decreased 60-89 G3a Mildl y to moderately 45-5 9 G3b Moderately to s everely 30-44 G4 Severl y decreased 15-29 G5 Kidney failure <15Reported eGF R is based on the CKD-EPI 2020 equation that d oes not use a race coefficientEsti mated GFR is not as accur ate as Creatinine Mirian davies in predicting glom erular filtration rate . Estimated GFR is not appl icable for dialysis patien ts HCG, QUANTITATIVE, [id number] 19:26:30 Test Item Value Reference Range Interpretation Comments GONADOTROPIN, CHORIONIC (HCG) QUANT 3 mIU/mL 0-10 (BEAKER) (test code = 649) Non- Females: <10 mIU/mL Females: Gestation Age Reference Range(mIU/mL) 0.2-1 Week 5-50 1-2 Weeks 50-500 2-3 Weeks 100-5,000 3-4 Weeks 500-10,000 4-5 Weeks 1,000-50,000 5-6 Weeks 10,000-100,000 6-8 Weeks 15,000- 200,000 2-3 Months 10,000-100,000PROTHROMBIN TIME/[id number] 19:25:29 Test Item Value Reference Range Interpretation Comments PROTIME (BEAKER) 9.8 seconds 9.8-12.0 (test code = 759) INR (BEAKER) (test 0.89 See_Comment [Automat ed message] code = 370) The system foodpanda / hellofood generated this result transmitted ref erence range: <=5.90. The reference range was not used to interpr et this result as normal/abnormal . RECOMMENDED COUMADIN/WARFARIN INR THERAPY RANGESSTANDARD DOSE: 2.0 - 3.0 Includes: PROPHYLAXIS for venous thrombosis, systemic embolization; TREATMENT for venous thrombosis and/or pulmonary embolus.HIGH RISK: Target INR is 2.5-3.5 for patients with mechanical heart valves.[id number] 19:24:31 Test Item Value Reference Range Interpretation Comments PARTIAL THROMBOPLASTIN TIME 24.4 seconds 25.8-34.5 L (BEAKER) (test code = 760) LACTIC ACID, [id number] 19:22:28 Test Item Value Reference Range Interpretation Comments LACTATE BLOOD VENOUS 1.30 mmol/L 0.50-2.20 Specime n slightly (2) (BEAKER) (test hemolyzed code = 2872) CBC W/PLT COUNT & AUTO [id number] 19:10:08 Test Item Value Reference Range Interpretation Comments WHITE BLOOD CELL COUNT (BEAKER) 9.4 K/ L 3.5-10.5 (test code = 775) RED BLOOD CELL COUNT (BEAKER) 3.96 M/ L 3.93-5.22 (test code = 761) HEMOGLOBIN (BEAKER) (test code = 11.1 GM/DL 11.2-15.7 L 410) HEMATOCRIT (BEAKER) (test code = 34.8 % 34.1-44.9 411) MEAN CORPUSCULAR VOLUME (BEAKER) 88 fL 79-95 (test code = 753) MEAN CORPUSCULAR HEMOGLOBIN 28.0 pg 25.6-32.2 (BEAKER) (test code = 751) MEAN CORPUSCULAR HEMOGLOBIN CONC 31.9 GM/DL 32.2-35.5 L (BEAKER) (test code = 752) RED CELL DISTRIBUTION WIDTH 14.1 % 11.7-14.4 (BEAKER) (test code = 412) PLATELET COUNT (BEAKER) (test 416 K/CU MM 150-450 code = 756) MEAN PLATELET VOLUME (BEAKER) 10.8 fL 9.4-12.3 (test code = 754) NEUTROPHILS RELATIVE PERCENT 65 % (BEAKER) (test code = 429) LYMPHOCYTES RELATIVE PERCENT 26 % (BEAKER) (test code = 430) MONOCYTES RELATIVE PERCENT 7 % (BEAKER) (test code = 431) EOSINOPHILS RELATIVE PERCENT 2 % (BEAKER) (test code = 432) BASOPHILS RELATIVE PERCENT 0 % (BEAKER) (test code = 437) NEUTROPHILS ABSOLUTE COUNT 6.09 K/ L 1.56-6.13 (BEAKER) (test code = 670) LYMPHOCYTES ABSOLUTE COUNT 2.40 K/ L 1.18-3.74 (BEAKER) (test code = 414) MONOCYTES ABSOLUTE COUNT (BEAKER) 0.67 K/ L 0.24-0.36 H (test code = 415) EOSINOPHILS ABSOLUTE COUNT 0.15 K/ L 0.04-0.36 (BEAKER) (test code = 416) BASOPHILS ABSOLUTE COUNT (BEAKER) 0.03 K/ L 0.01-0.08 (test code = 417) IMMATURE GRANULOCYTES-RELATIVE 0.40 % 0.00-1.00 PERCENT (BEAKER) (test code = 2801) Tissue [id number] 15:09:02 Test Item Value Reference Range Interpretation Comments Case Report (test code Surgical Pathology = 104) Report Case: [id number] Authorizing Provider: Faina George MD Collected: 05/05/2023 08:52 AM Ordering Location: [facility] Received: 05/05/2023 12:10 PM SERVICES Pathologist: Jimbo Ortiz MD Specimen: Explant, Hardware for ID DIAGNOSIS (test code = [id number] 3220) uZzEwMzNcZnRuYmpcdWMxIH tccnRmMVxlcGljMTAyMDdcY O3ifHiepHh9rOldLQQwmvR5 fZLdGLkvy0owCHY1q5nyrwu rWEPcCVnrEg8rgHQckSziGy SwBXLyPVx1iO19DZQngN9co NHxMYa1SNLgkRCkytNvGjSn WJBrjWRzxTQ1EWZqBZ5oapo qGAhxKSwdVLEdsaL0CBZnyK EaM1XnKERzEL0alcgiZUQ9U TazSDHyXUD2IlCwKQZid4Pq zxk5LyXhyZUfIVadiLLbefh ewaKqYAmmsmO7DMHjVYOhhZ ShNE83IWxxx2IxP5Oze9IfH UzfvOoxAEUif20ce50iiCz9 ATIunjutzQgvJZbpvkOyc1y fSXwtsbP9OLElZVemVA41yY ZpZWQsIHBsZWFzZSBzZWUgZ 6Umi5KvKCYgQ0YzeSUtf27e KDMblg24DIK5QlIyz8O7VRR 2SGNbEXZot3qrCCPnlCDmJn EwMzNcZnRuYmpcdWMxXGRlZ cVwt8nac436qRHsa3yaJTBf CbU7nWXlDXBdmCKbR827DXD bZPlrz4sxa2HfPKEsvWCxh3 Z9LTZYrwwvgMs9wXknP57ht 3I8JjdnY1whCNQlDISbW8Vr EE8zLYUzBcq5UQK9JIU5ORW iOOXgQ5LqNK3kUHSrtUTeXE i7y4yqeAbyGNMuZXE6m8ptI XntrhJiDK8xwt9owOn2a0up kbWjIRGcTCOurFJWYWGiL5P esCxsWl5lxCc5oKguTlpdCY Q2Wxd4JX1ruo79dfs4pHiwN GZxpbnxUsY0HFhgXYTgeews APx8ERovWZXlgIC7AHDkqLM dL4QkBAKyHZ8qqrj8DCE0AM piDKYbGdW4DHJvoSPmGTGnr NveDFpsz002OBC3JsLfVI4u O7Hpy9W0uX0evGUhSUJlpQI fIoYxMHQwbd0uoLHvKWfjd8 WiHAO1vxK0gWUlnJNiDPWgC rC5WRvgVB5uck58PVYnXGL5 qd1ttIIvpOkgfjVqrDAwKAr jT5UkUAUvl077UNTqU8EiPW Mld8U3ggZjVpNqDPUoiZD1b dB2TTCnMV3klaqeg8kgYAlv VRlvNIGxloX0urV2FVCynVT qA1AmeF0wYDFgJI0suggne1 afCRT7LWjoMSNmWAI1EbDeN MZcr7Amznq1JrSjs0VbeRUk FRqhH19ps698SUWnxkEmF0g wbGFpblxwbGFpblxmMFxmcz Y6HTVsCFczklgaKSLrCMbkI 3imGkWeSWJdfZtfBVcem6Ks XGYxXGZzMjJcdGFiXHRhYlx 5MLQknDPqYGWwKxBdG9numv qxDbCJWMPoh6rlF2kcgBIEx QSfT2DyMCveyxIyJMaeSLkq BiJjLYl4PL04AcElDTAvmi0 9 CPT Code(s) (test code p1jloXSlDPZkcBDlSFDyC8e = 3357) qavOtBOCgcUOjD9CtpmayPD mvMV8wVJ6ebKsbsDLwiENzO ILqIkUqt6wfg400cXOxo7zi DAVNtflpoSp8lCbdQ92lq4H 3VjltZ49psWExNPM0XDDxUG MnjEHbKXEdEKC2ZHHpyCVaQ 9xxBYRlFU6xyljkBCemXLti GMHztKZ2OUKcqAIsF2RyYNH gTLlvNPBifte1UsCuJc0miN VyeTcyMFxwYXJkXHBsYWluX GZzMjAgODgzMDBccGFyfQ== CLINICAL HISTORY (test g0dsiMIzHCZvmOEdWIImU9c code = 3356) fkfCvUQRxgTIhE6CppibbIB rhPD9wUB1kvYhoiGXcwYOhS GJsFxZse8rbw936rHGud0ka PQAHahaiiUl6sAqeB18hd1J 1MndqE7lvWXHnKYyoFDUxPO jxdDNbFLg7GPNxrQHjtdOfZ pMvSNPllIIbkXF1EOSaIC8n mlsnGJszIGhbEAUmunM7UIK uuQJnH3SuPHLlYO1ekbigLE J6RSzkRIYfACJ5UiYtRRIrx 7Ohozv6TdDfjSQeFJtfaIHx aVditR4lSfElTKgzAtJvD6n xg0CrYSRva0FbVEBaBNNazB WsphZ6tBQuBAWkDOX9qOPmW G0uZZLfG2m7EYGgHiukPAHu xky9gXVmMVJkO202jlInneo wYXJ9 GROSS DESCRIPTION j5vstPDiDVOxfZLJSQDhFIR (test code = oFW6cgEihiDf3sSxnSSBxoe [id number]) Q9bNLiUOjoi2yuZUD3s5ctg sIBVznbVYTyKB0aGMopVNLj LX8bKuMcNUQcSlTiFJZskCK mipRiQlCsCXXrpHYnwJR5KR NwCX6xnaqkNEzdRXttHKHrd zX8NVZdjGEtS9TqKGQfAX4g exorSDK7TSMYZpchWh0daKF ibHtcZjFcZmNoYXJzZXQwXG JvoPqrXWNrTIx6hW7TWrgtO AT2VXHBDhfnVhqgqXoky7Pe dCBcXHNnIFxcaWQgNTEwMDA gXFxkYiBPVlIgIiAxMjIzOD Q8KnNzFFk1EOinOgDSJDC5V wVxKQXrKNj0DSsyUZyetIPn KBRvKOXbNIGmAPxcuwY8o3r cKEUdpCOyOLL0VGzfn4eyAD pvUHL3REDoVmUqQYKxGS1KM uQsQBGjOsY3GPTiTaM4AJc4 ASCQTrAkXoEdGjB8RJC8WUn jQDj1LRm1HByXKxC5JJG9ER UrJBItZQE7KgfwNQq7WQDhE PhczrXuXWkqDeohWPwyF45l cGFyZCANClxwbGFpblxmczI pXODbXQS3gZxkbnLoiEHnJT 7NRXTnpgYzVXxqnAfplB0jU nMyMlxsdHJjaFxlcGljTmVz dERvYzEgDQpcbHRycGFyXGx pbjBccmluMCANClxmczIwIF GwE5QkcyIqWLJwSAByEIeiY dAhKSXaj2k6dOV4eGZxvAL4 pQQgbAwyDD1smVPeCOQcW9J ue5mfryCzuK5zRRImRH1gXB SaRPRxi1VwKSCiVTVzFJdig PZ9PGzdlDJlB8RtpXF3gAJx KDIhIFGlQ0Ruj5RqgVaalIH pLN9qIKYndo2vJIFfVU51Yy WjN96ziV4zaXLxU5FvWRA7M DAuNCBjbSBpbiBkaWFtZXRl yuqdJT1vXUWwXJCjUtL3SJX vZDQ7XCLhMbQiaIJnFBPliW puJsKbjfK1NVMAOLUtIFQoJ YYhSM1ij6VyMZJtYWLflEL7 OM2cYAYfKARlb4yek0muldi rsI8wY0FglIGdw76uaHUwfP KticTnUvlbUDatcDQyLO3HB HBhciANCjYyNzczOFxwYXIg DQpSaWdodFxwYXIgDQpIMjk 2UNabzFKhJP4FM9FeNDOzJ6 xqWNXvOLxYdHQ7u6HoMNRcq nUEOdcpSNToCSzDQIeod1Xp NVOnn3SxE0OyrTetzUNbpJG yZL2rBAPTmxXtOHV8xU2xnv UapuFvr3BodWg5oBSfImTsZ GhpcyBjYXNlIGlzIGZvciBn zh8cmtMrjOHfeP3khRbgdgM vhhg1AhzwRQFjCHamgZJcNC 6LBMVxKxHkWNWeY3cmBBVpZ B7LIJyzUKHmMOJhxAPjpEPn FZKESCmjZPZjVHUNX9EcLKz uEJZhS37hb8QDp0Mhg9qocM xse4EbiDRzRF96UHTfhUFwT QR4DO9pmEsaUDAkBLpbtLZd SMKKQcycuaTgAP6YyE== MICROSCOPIC e2nwbHBjQBIsgQOjNYVpB1j DESCRIPTION (test code bnwNiRNTehUFpZ7YigzhhGP = 3371) yqAZ3aQK5ysOdztWFvtCNcZ XPtUlWqn4wjr047kEVal1zj EACFmpyttKa7nIyiN77ey1F 2GdvkR13ztWKcVUV6BDOoGQ CfpNXrTBJsJIZ8AXQmvQKbX 0vhCGCiYL3pszobUWxfPRdw ODBjrAZ7PAYgjMMhF3DmPOZ sNZwrRUFggvp5FdFtGz7phI VyeTcyMFxwYXJkXHBsYWluX JFhObYlOs25VQIyqlZxbt8i ZFxwYXJ9 Gross assessment was [facility]'s performed at ([facility], code = 2772) Department of Pathology, [address] [place] [address], [facility] [id number] 15:09:02 Test Item Value Reference Range Interpretation Comments Case Report (test code Surgical Pathology = 104) Report Case: [id number] Authorizing Provider: Faina George MD Collected: 05/05/2023 08:52 AM Ordering Location: [facility] Received: 05/05/2023 12:10 PM SERVICES Pathologist: Jimbo Ortiz MD Specimen: Explant, Hardware for ID DIAGNOSIS (test code = [id number] 3220) uZzEwMzNcZnRuYmpcdWMxIH tccnRmMVxlcGljMTAyMDdcY Q5ztLremNv5eAbnFXDsjfZ6 zSKaEVcjp2omETI3x7bcmoq fXYCvEAwgRm3irBPrjWwvHq OaIZAsXFi3eE91AFRxtQ6ga UYpTCe3IJBtfVPckjPhMdAk UHRvqLJlwZD6MCLeZI5nwqo mNLrdFTcjIPCgfuO6HCIyzO GbB5NeWLXrLR6nspjiRNC1N MaaBFUsKNH3AsIySWIzo1Jr nmv5LfTwdBHaNIosxONwrtz dxcZyGXmbvsZ5FAFlLSTljF HyGX72RFsnu2LwF2Vni1TuO TabhXowIGBlc94ad94ilWa4 WMSrrlscvXsrPHlndwHtn2b oGXbjynV3UYMlLKixYZ59vO ZpZWQsIHBsZWFzZSBzZWUgZ 0Gfg6EuBBDiH4SgeYEbd47c OMZhnl73CPZ8LyZuz7W8ZAY 0ADCsMZPir2zeUSHvwHHkNq EwMzNcZnRuYmpcdWMxXGRlZ dAuc2cmr985gNSad0haQVHr NhH1rPMaKQZrbJZkK636AFK nUOlbn3dyp4WuESQkkZPxc5 V7FUEFkdsrtXt2yXvxY31gy 4H6PffsB2ecHXLvVDSkO3Mb UF2pYUIjWvh9NWK6MWL0TRV qWWCzW7MsVB9aGNWzpVCkMK q3n0snxPpoHADeKUE6o9xjJ OkfbiWoHY8apt1kcJo3f7oq wbEkUVNyAKCfxDEESJEvR8I gpGhxFm5whFg1mSrhYbnvRH X8Ybf0ZW9yya80pja3lOlpS YWwhdxiZzH8JFxkQYIqwzeh EKq6EQkrRRRsyYJ0YAFysZZ wK5OqHNArQK9tboo1AOK8FB tjNPTdMjS6RYDktAAkSVYto QjqMMlwe147IYE3GuZhYK7s E1Cqj5Y4oE1dyWXzWJMwxWG pPjHzOCFdso1mlKIvCVker0 PhIWI6maF6nWQoiVFzAPMcT hD9BWdkRW4tdv32HBXzOUL2 dx4fkGTwaHecwcCwnVVuNGm rD0VgQWGps981QMDsP5ZaOH Thw5K6qkLkPiDcMTMfbLW7g uJ5YNGgFJ9vdxrty1ivLSxx IFnaTWOgprK0kzI9OKKufCH eJ6JutK0jSIHlJT2czobvz4 iaKBV3TQhhUZDzXTY8WtVpF SFhi9Owokq3BqPkz2CluPBj VAmzA05lk250VSAichPfY0i wbGFpblxwbGFpblxmMFxmcz H3SRWrBQajrstwOAAxDGyaG 1jmDuHmYJVtgPieOFsux1Rq XGYxXGZzMjJcdGFiXHRhYlx 1UFLfqVZjXMEtIjKmB4bdjz zuEzPDVRYbd1drN4baeQLOv ANpW6KjJWyntnEcSGgnEHkr SmVuDQo9FI63MyTuBUXfdb5 9 CPT Code(s) (test code q5jeuPBpBSTtmUMaTLUxF4f = 3357) dykIwLOGdhJAaB7KfwovrVJ olAQ7cWL8dyEwhuFJkbMDuE INxBzKah6omg645xPPmq4sf EGNUzesbwQm3zMlzN57dm8Q 6IimgO56gjIXsRZR8UMDcUL WfxASySLRvXSA1LFHuvQOqC 3zzFBBgFS8cmyjwKAivKIlf EHUesFG8HDEtcBRjC4KgAYJ yCKwgOKZbhnn7IcSdEd6tuZ VyeTcyMFxwYXJkXHBsYWluX GZzMjAgODgzMDBccGFyfQ== CLINICAL HISTORY (test q3zrvYBnRGCqjRCzVZEhJ5t code = 3356) xreRaPTTjwXHvZ7HhzynrPB efDM9vWF3chWdytADjfSHmK PJrDhLpa4ong758tDXjn0rh JSWPtuocaLt6rPegL44gi2L 9SrhqH6noNICuZYlvVXInZT vbdNUtOKy6KIXuoEByxvXkS sEnKCJteQCrqRK1TUWfRO3c gkvnLWiqXUmzUSGfuwA1PFC zxBGkY2VjEFZbHS9hagtqSU W7RRzbXUFoSWC2SqSwEMUud 9Gosvv9NoQvlHKhWWhzpUQx wVtoeX1wFjNjLVzkNxHsW0f qf4JcCMCuc4DhPHReDPSipF CclpD8jQMzXJJqPYP4gWTmL Q9cNYVjA9f1MKWsCowqMJAj ayx1vNMrRZJeU689kzPftva wYXJ9 GROSS DESCRIPTION u1mqoVMtBYVhxPUVJLMuVQE (test code = hHG2rgIthxSl6wZspBBAzmx [id number]) O7jXDsYGzye7bdJUR7x1vmd aBAWwfqVCMfLH4sAHqnTHVd LF8dRoUdUYFqAaQgVKNhhZF qugInPaUuPFJhjCRasYB0LJ HzMQ3wbdsiCAcbAVgjSIWgf rF4TTPrjEYrB0EqZZNfQS6k jodcKAZ6LBMDRgsaAg3jvNU ibHtcZjFcZmNoYXJzZXQwXG ZztXmfRMTqWMr2gX8ICxvfM QM9MGGJRrtpOpoezNudr2Gt dCBcXHNnIFxcaWQgNTEwMDA gXFxkYiBPVlIgIiAxMjIzOD W9OqUyCBu9BEdrHtEKYRO6D jGxAKNiMYs6VEoyHFxsvBLz FHUcOCSuPBQbBLsysrK1x8y aOINwwGAsNJZ4GTyhv7boUT fzUPB1VQKrGoGxRCAtPQ8JY oZySPPuVpD5BMBqSfO4OLw5 JHZSIlUvYvSrPbD3DXB1KJb uRJo5OBz4VRdQNpH0MAS7NW ZvIONxXYW4GnroKDp1OVCtY VjnfeRaMTclVpftNTjmW49f cGFyZCANClxwbGFpblxmczI bJKXeXYG5rYfxnfRfwISoTD 4KVUGthvNmHDsaeIdspN6xE nMyMlxsdHJjaFxlcGljTmVz dERvYzEgDQpcbHRycGFyXGx pbjBccmluMCANClxmczIwIF YhY6WejgFfSSNpNYKhWUjmA aRmOZXij7o8gVT9kQJfmXU4 lSDiwBzoHA9prKJtAIAkH6R xj2pxctTwgY3aDQLzZP9wMT SmEEVth0HyPOWnPYUhVYtck FN0HUvmkKCcU2XnvEE1lNYi YAEqJCJhO4Ytc2BwsXejgMD lYV5gPYApzj0gGANwGC56Ja FfV53ssR6kaTVwZ4AzKHY8N DAuNCBjbSBpbiBkaWFtZXRl kqhvYS9eTJUzJRDvLxM4QTX tHNI7FHMcTlDmxDJlUULlzE zgXoOetzS9ADVCTUWsQAAeK QBmHZ6ss1XuXQDiUVHtdUM1 AM4pACCfGIMhj2xzf6erysb tyB2wZ4PywXWdh35wwHOwpJ WeftXwJmcjSJrtcEJjDI4LE HBhciANCjYyNzczOFxwYXIg DQpSaWdodFxwYXIgDQpIMjk 6UDatwWGeSO5XA8FpHOPrS8 ivNRLsJLgRgAQ7x9JbDTSpy dIUJfsaRXGhLBqPFUpcd1Ir MMAol1VwH9VciMbcbNLznJJ mLP4tXCDDxkOzUZE9jS6exp ZyecWjd0OauTe9zKEoAyBqB GhpcyBjYXNlIGlzIGZvciBn kt1qiyQedXIssQ9baKqnyjQ phwh8SkjyEYXnUXizqTKyQD 4MUZBgQyFlIYSwS5pgJRVdC Y3OSCxbUAUbMNDfiUTtlLBd ZBQOZOouFXPfXZMQQ0OxAYi dSLCkE60ew4XRp6Qij8uxyL oam1EnfDWmOR87UFLblECrH MB6BA1tlThuTEWySQymmTYh BVLJSiviuwNqKY1CgC== MICROSCOPIC t6yokWNjTRTiuTMpZZXzP9x DESCRIPTION (test code wudVkWUJprHTyT3IankdzLK = 3371) blVD8iVN2qxDkotPZhkAAcO RQwFsOob5mvn161zEVkc4bm FWJRgovdpSz9yMhnE99qq4F 4UgphM67ywUGrLPY7FCJrJS KsdSSfEUVwDNJ6FWGffLRfF 0icJSBrSR5wlpxpVYzuCDkq FSVdyUR1MWGydBPlU4IhLZW iIHbtEQMigit4UpOdMb4yyJ VyeTcyMFxwYXJkXHBsYWluX YYuGgKlUk25BIXbtaGtde6k ZFxwYXJ9 Gross assessment was [facility]'s performed at ([facility], code = 2777) Department of Pathology, [address] [place] [address], [place] [address], [facility] [id number] 15:09:02 Test Item Value Reference Range Interpretation Comments Case Report (test code Surgical Pathology = 104) Report Case: [id number] Authorizing Provider: Faina George MD Collected: 05/05/2023 08:52 AM Ordering Location: [facility] Received: 05/05/2023 12:10 PM SERVICES Pathologist: Jimbo Ortiz MD Specimen: Explant, Hardware for ID DIAGNOSIS (test code = w9kyaWJgYIFda3rkILEliVC 3220) uZzEwMzNcZnRuYmpcdWMxIH tccnRmMVxlcGljMTAyMDdcY P3qcXacpUn2qXiiYTGsmpF0 nTGaSTqvb5kjAGQ9m2tvgpl wJDLwVAotIt1yuPNckSveZw JcZDVvVDq3hP33HGSwjF1ji BWfRMx0MBEahMXmhyFySnFo HVMzhFPbdTO2RNGzVV3luob tPJjpLIecUYGlpvZ5GQWmgN NxW8IpWHOiJW3odmwxNIY6L RtzYWKlTBW0PnGuQYDjs0Lk eyc0XxCwvOCoCQjabKJzrop okrCtBAtqzaY5XOXtLGBugT PhYW07CEesw2YkS3Jgb1UxD XxtwQwpUUKjz30jt38hvFo2 SWHhxflabKfwXSpibmMwd0o sDKdscwH4VGOhVJwrOE60iP ZpZWQsIHBsZWFzZSBzZWUgZ 9Sef1AxTCCdK7ZjoGYvn66s IYEwgf30BPB0OaBco4H9BDO 2UHJqYCDvl4edHPRdqJWnFn EwMzNcZnRuYmpcdWMxXGRlZ lZyg5hvu325hZGqz2diYUFw FhM9bYNpEVWkfCJyZ550AUU hICfqn6cbd2GeMQNsuNFfw5 L8KTTHccwjmCk4bUfsQ13em 1Y4RlsbE2lrRJWiOGXhB1Pu AM5zUBRxVfu0AUL2LES5IFP aNIBvJ1GgTO1hVFQooNPmWY p6q7bzgSybJVXuGOQ7d3uhR VizsqZvCR8eez2sxFe0a3dg qvFqCWFmZFPueLEQBNTgW7S kdFzzKq2tvZc4jWjnIqytAB K6Umj3VJ9pxe23lli6xBfgB ZRccahpOaD3WLokQMYvehzy AXs0HLwhRTKeePV8DMHrnJW bY0KhAERyMT6cnsb0ARZ9BZ lmUQNoDvB6AQSssQYkBNRlk LtfZTvsv003IAN0OmGkVI6o H0Fdc4Q5sG4jnTKiUSUtpCW hGhRpUSThxe3cdIKaZGhby0 MyQOK4pyF2fRYxuDDyFWYoC xM1SWfuHD8hob21PWKgJTH4 ba2ldTYrkPtzliKnaRAzEJs iK4TpJAAqk370CMSoN1XdWR Wzj6X3enChNcWeMRLfnRQ3j tT4MRZuFH1abxocw0kpFHmo VEbeKNPabqK5rqV7HUIcvVT zQ5GxfS4gORYdZJ3ssciyb4 wdEKV1VLisRRNbWWA6SzRbG IIiw2Uwosj2RhKjc2VnbVIf WCeaN44gz906IDOzqvIwK9d wbGFpblxwbGFpblxmMFxmcz F8MQNmPTguzjmiJJQaYCcaK 6tdVyYkRBBhdSosRZlil9Fv XGYxXGZzMjJcdGFiXHRhYlx 3JDAgpQCoWAVvOfBdR3egcu vgZwCJPFZkd0zjJ7uzbJIDj RRpS1TxKYbpxfEsHXqkRZbk OlTpSGf2TN16ZdHcCSJrup9 9 CPT Code(s) (test code n0dkiQUtBETtpXLaPBShL5w = 3357) liuPqLCVprUZoK5XnosucXY ujLL0nDR2zjTelxHFjfTXdU ARcVdNlm6pqq721pSJyx8yd AXBWstzrrHi8rMwsR16rx8F 2IcwbC55pyZAaAMI0THQfFY OdbEMkDWJoDRN0UKYckCXrZ 3ubKGQfCQ1gfezaJYpiZMec UYKaqCO4ROImfOYcJ0HzNFE fOElrPDTsckg7EoCnQd8dkQ VyeTcyMFxwYXJkXHBsYWluX GZzMjAgODgzMDBccGFyfQ== CLINICAL HISTORY (test z5ryxBCfROGelLGrISPzC6c code = 3356) dnsFqGDLpxQCbD0QchvzlKU xkCT0pNT3vnAidxSZuyTXbE BLlWkPzk0bwo344qDVwm3tw IXDKbdlxrXz3sEizB22la4R 0IkdcD6sxSTCuJZtwTRIzQD ulrWVtCMg4OACwjEToodPaT fHpUIVwfCWfeXE2EOMuRW6n rwcrRJetKMyaZRIdeuL5PFR zdOFbZ6YpHRAjUW0fgkdiLJ T3BHtvVSJrITX9OzCiJFQqi 6Bgegl5XyOlyVNrDKnbkJKb yFwwzT4yYaOnYBoqEzVcT7m rs1UfPDTvp8OyPWZrJZXmoR HyobB3pSTpIKDlDHU3fKNqF R0oLPNfH2s6REKjWmtoGAQu qwf3eHOzLRXlZ066cvCjpjy wYXJ9 GROSS DESCRIPTION w0txxSBlOQJbsXRBNOCbGVY (test code = xEN7xbEovzBe1xJjeRGXxqs [id number]) T1nDQnGOxoy6mkRWV1e5pqe tQNNskpLTLaVF8wEYrgPCNz YL8uLvIfJDOiXnDaNYTeoJC jcdZwXvWyFRFbwEVgnPZ6XC XvYO0nizpoGFtqIUyhOYFrm cL0LQCbaSDrN8GkTPYtKC8z dmehURW6CRQIOpsqLm4fzFV ibHtcZjFcZmNoYXJzZXQwXG XyzHrmXGAoDWq7qH7PUppuO SN0ZHLGWiujBlolkQzte3Yc dCBcXHNnIFxcaWQgNTEwMDA gXFxkYiBPVlIgIiAxMjIzOD G8GsLlVWl9MEutSsCAVOB1V oQlPIXlWLw1XQdbGQugkUTb WSCcDJOmYZEfJArzheJ0p3q qFZSoeQZtGTE8SUjmp2hoLX pdQOP2XZGdNuJlFDHySO6GB eMsYRNjSsV1NEKpQtT1HGf9 MNEFSgQbLbArXwK1SVZ4LHh aAMa4RUm6TGpVInH0IEX5KZ OvAMZmXDQ4TttcUWp3LHQcA FkrpzIpQKfeBjfoCDziC59u cGFyZCANClxwbGFpblxmczI fUSEoDKD6pWsnatEzsXOaOM 5CUSWateOuMMbqpRpqpA6rM nMyMlxsdHJjaFxlcGljTmVz dERvYzEgDQpcbHRycGFyXGx pbjBccmluMCANClxmczIwIF EcE7ZbvfWpVHSoEPKrXQhjU eVbKOUhb7t5fTW6aMRekAQ9 rLNiwFelPK8ecUJdCLLcA6Y em3yvusJmnP9zORDkUU7bTS RcZLWce9DpXNGuGURwIUzad ZF4QUlviHJqD6JjcKG9bFAi OKDvWHVvF1Coj3WbsSgvtJN tWM8sPEBuqu0tEJIpWF07Ey WhZ64bfU7crZGfK6VoCTC4W DAuNCBjbSBpbiBkaWFtZXRl tameKP8dBVTkATQuGqJ3ABN wRQQ4MOYoCmFxnOTgYCVgvU nnUnZyjvR4WQBFBVEpPEIjW DVpKV7cb0CaQEYeGNShsRH2 XE5jKFBcUPJyz6vhs6ctynx zsQ6eW1ZulJNoj05boORhlG SlsuQcVqabUZbicFMzPV7OH HBhciANCjYyNzczOFxwYXIg DQpSaWdodFxwYXIgDQpIMjk 1RIlnrARqXX4BQ6QaSYKtP0 mvVHHlHUdPbHY1m1KfWWPuj mCSXszgYKWjKOjWYLguj0Oo RTUvj3OzY1IjnMhopKZwhAR uRG1zEKTPrzXeJEF0uH9sep LaenMzw7SaaDe9zCMsMgFbH GhpcyBjYXNlIGlzIGZvciBn gb8oodXvtRZvkK7saKxegxB iisp4AmdzHPJhOGgyzAEmZR 8SMWDeJkLsJOEiT2ncEWUfI L1FUEutPNHcCRNasUGntIJu CVHFRZycPORxSLRGP5WqIPw rXZTkH52jb9USa0Ezb3spvS qsr6YdsRYrGS77ZSTpkXWhB GE8LF5blTrlYQXsWCoptDNf ITMFTgxscyTeJN4IdZ== MICROSCOPIC f3wynONePWYgsJSlNCByD0u DESCRIPTION (test code lsrOqYXBsnPEhX3UiwkrqFN = 3371) nbMX9zXO3sbUrzeFTtrVUgE ZBzMfXbx1zxa947iQIwz0fc YDYGonvcoBz4gRxqH14sq8U 4ZpxdF54srWXbZMP4MMSbAH VdaBGsPTOjCTD9POFyxKLaV 2zpODUcTZ9qjcgzJYkqCPct VEAdkPH2DNQwtHMlH4XyMCS aAGduOKKirqd0ZbMbYx8hcO VyeTcyMFxwYXJkXHBsYWluX IVbTwIdTd31VJCgsvArqh4w ZFxwYXJ9 Gross assessment was [facility]'s performed at ([facility], code = 2777) Department of Pathology, [address] [place] [address], [facility] [id number] 15:09:02 Test Item Value Reference Range Interpretation Comments Case Report (test code Surgical Pathology = 104) Report Case: [id number] Authorizing Provider: Faina George MD Collected: 05/05/2023 08:52 AM Ordering Location: [facility] Received: 05/05/2023 12:10 PM SERVICES Pathologist: Jimbo Ortiz MD Specimen: Explant, Hardware for ID DIAGNOSIS (test code = [id number] 3220) uZzEwMzNcZnRuYmpcdWMxIH tccnRmMVxlcGljMTAyMDdcY Y4bjXixjMf8vNwiBAHplnN5 oRVbGMxes4auNBF6t6xklaj qWTNrSHhxSc5paHYjaUxiZd NsFJAfRIg7yE43UYSxbQ8ai HMqUKn1GGKwgLNjjmXhByGm MHZbuETjpYS0QEFkEL0sxns fHXyeUJlpVUGgolF1SBOepQ RlG8AdMVUfIH8rgwacYLW1R RiyOQBrWRV3GdMtOSZza4Rh gth5HdDeaMCgHMkyhLWurwq imtLuWNdgjrH9EDBxDYSrlQ EyYK37POwri9JhY1Omz9QxT LapcTmoHZShb66ae02rqJt4 DELoqhmaqBwaCDbxnaDqn1p fUWyltpY8AEJyMOjlCJ91dP ZpZWQsIHBsZWFzZSBzZWUgZ 9Suf7MhHZVtM6UllUSxr27n DWGdwd66TNZ0PoKuk4F5LCR 9PBAuKVIsx9tmPYRzdIBjRi EwMzNcZnRuYmpcdWMxXGRlZ nRjx2anx352lXXss5bcOGZi ZcX0rMMuNRDxmQMoL558KJG hJUviz5ohu0ExWHRorLGkz1 U8MZKRscchqBz5wYzzN48au 4P6MxnoU4qdXSYkPFCeH4Ch KK0dFWYlRin8STH6IOC6PQP nTKJpG8JzZE0fJNXclQFiCB m5a0pnvOkiIXPiKKJ8z7vaP EsnuhPbWA7sjr3ymGw1o9zq qwJbGGDtUEBchIUJWETmM4X biDhvJf8tuNl1nVxqLrafCP W8Fqi1AD8yxg72lhk0pJvpK SZcrggiIhV1LGjlMNYxueoa MBa2MFwjHZQcxIL3JWGxsJT gG3QuESQyGK4jqpt4OUD1EZ ilGOUbPeR6XESvgYEcGYMsh ZukZUscw193FMZ0YnNpNF8c M1Mtd1H2wF7ibZCjUSQrlHF kFlSfNSOnol0ygZFzQEwkb7 HkVAS8efO0rFPdoDRwAZKkV lT1EAatIF5qkr48CJJtRJY8 ox0hxFRasJnlzpMqnRRkZKc jR7PeWBLfh658FPRcV3HzSY Mhd7L8xpBcLdBkPXHcbGP5i hU7KJItQO9ccptde2zgNTjh SFnkNPNgooK8obL4TOXymXI nK5FigM2cNLQkCN4pmwhen4 cgIVK4EQjoSMTiERV0SxTeR YBhn6Duzsx1OaFqb4CthHVw GWbgQ18fk744AZAjehMdB7g wbGFpblxwbGFpblxmMFxmcz S5MPLnNCbqcbmmOUTeESofE 8mhWaThEZMmzMjkQFmob4Be XGYxXGZzMjJcdGFiXHRhYlx 4FWTlxACdEKUlHzKcM9obtz dtUtILFFLoi8kyJ9xarSFOp EGjB6IaTSfovxVpWYgyDAov IvJjQIb8DT75WhGxPJOgpk7 9 CPT Code(s) (test code e5umlGLvWUUfiQWwLDXxY3i = 3357) kyzAlHXBkrKRzK0FbmcbkVB wqJL7xOZ5foAgojEPmbUBgS FWpUkYni0dew405mFSof6ao IXFTtvaqmZr2hOlkQ31yr4Q 5MmjnA06hfGGwARX7NMNsVN IcfJYoUUHxNBA8QIGyoXLtX 1euTILhLV7vcsieIHdtPXto ZWGjbJK7YYEfvAVqN1HyVME xSUpnCGOcfke3TjGlNb9odY VyeTcyMFxwYXJkXHBsYWluX GZzMjAgODgzMDBccGFyfQ== CLINICAL HISTORY (test m8kxsVMrBSRgxWOaWTReO5c code = 3356) uwaKgLIUpjEKmL0VufsipGV reZV3xIH8caDnqnHLezHGjQ BWmWrWst7cxj864kLKet0lq ZNKOxpdtbQw8lEprQ14dr4D 6PwmbD6ljWIGgIYlaKYKbVH uitRYxTDn5LLNnyHLvvqBlP wYsTJVmnDGksDM0FUSnWP3c jmwfKFnqSXxvDMIzxdQ2ZJE miYUwG3ShRPZvEG0ejymeEP M8FFniGXAxXCI8OpMzAOYye 8Lpiuw4WmQghLDsULytrWXm nZxugO0jAoVpFYdjFiAvQ5g tu1BsZBLla5QwYPMsUQNhsZ EcfgY5nSBtEMDpJZM3lKIrI V5vSIBqP4i9EZJrQzcgKPBy bgk2fGJmHOLjH560wxSditq wYXJ9 GROSS DESCRIPTION q3ejxCNwAKGvzXYKFCZgDZB (test code = sGM9vrUphjZy8dYjiMXUybw [id number]) D1iMEpIRapo0dmGKQ6x0eig nTTTrxhWGIyZB4iGJuoMQAx QI3dFuJdXCWiStXnSBKrmPE yvoPuTiUqNIZyaHQxbMK5LD FkCU5wkbqnYPnfFDhrAEAmg eQ3PKTgkNLxC6KhTPBiCT7p rsjjFWJ8JPKUJbqwVz5gaLE ibHtcZjFcZmNoYXJzZXQwXG AotHeeONZkNIc7uI6KLptmH ZL8BBGIKlvkAphfrNdiq7Tj dCBcXHNnIFxcaWQgNTEwMDA gXFxkYiBPVlIgIiAxMjIzOD U0UpTnZEm8RChwQhXWYYM6T uLzMVLvXAd0NRhfYVomnLXg GCTjNFQdTZMqMYquajY0u5u cHROzeYQsLVQ2PHciv8wmVD zdYBX5RXNeQkFtTHLgTF3VY mZoXFScFaG6SRCxDxG5NXt5 QJVQAwCcXmCnAmJ9CGK9SFh dCMk2OLr9IBvUHyQ6WZP6VY XmJESqFWO1BghcAZt5ONVvY YgajbYuIXmwNgsiHAchC35m cGFyZCANClxwbGFpblxmczI hYVYwHYN3sCrwluCjwJGdLS 9HRNYvrnEvICsscHvfnQ0qY nMyMlxsdHJjaFxlcGljTmVz dERvYzEgDQpcbHRycGFyXGx pbjBccmluMCANClxmczIwIF LgE4ButdSkZBUxMDXpSQvdM cSiJALkk3g2xYE3wZZodWP0 mNPrpMmoCI9oeSNzCAQpV5G mt6euxbIvoT6iJJThOW4jGF PwEGQcr9BoLLIeBIOtJXvwu SZ5VFfchXRiN4FfiVB5kUVr ZGHjKDFkY8Ecy9ZxiJpdvWG wDM3rKUYkbv0cRMUoRQ29Gs GdV76ezW4huTBjT3JkJOE9R DAuNCBjbSBpbiBkaWFtZXRl ufyaOO0dLMAxRSWbWkI6DXH nPAG5FZHoUhKkrCYqVGPvtY wpGdLygdM9ISYNXUXqYQUwE TQxOW7me3HaLABuRGOzwWL2 PE8wRVCwBBXui6dqc4muodx twP3tE3KqiKHil00qsOSgcQ OqppQcZfwhLUfyuZViFM6MO HBhciANCjYyNzczOFxwYXIg DQpSaWdodFxwYXIgDQpIMjk 5BXedcLDpAX8WA0FkFBLrK6 llTITwPNgGdAT6w1ExUIEsn rHSSdhePYOqSCkIQWvnt7Tv UJXav7OuP7ZfmSishLHnlBH oHW2qSNSPvwYaJQO5yV4mot CqakZam5CdtCh4tJNoOcUpM GhpcyBjYXNlIGlzIGZvciBn qe0jhzLapDNltC9gdHlsoeF veax6NerwVBNuEWkrqFJfMB 2EJLVtUfGbCKEaW0xxYAQnE U6QYMvgBMMdZSTrjTSixDHi QSQXPVdwXXHsALHSY8DeXWl eLCXbS29wu0FHw9Xsf8ekmZ ssi2RokHBlHW56XQCzjYDzI UI8WT5nlCmjILOgXRjhhRMx GRGVWkovzuLuBD5AyZ== MICROSCOPIC n3frbAFdNAGlbSOyVBGyL8p DESCRIPTION (test code vwoWzWFJvuHBwV7ZadaruUU = 3371) sjFO1qDB5hoGspgUChrCDbW BBkVpShx5nci552iFWsn1jg SBVIuylbnJz2qMwaD35no0G 6AntdB09sgXEgHPE3ARXjOD LyiYSzZVDlDGP8MZKeeUUeQ 9rhJPZcMM3rlksdPDqbNYyv WUIcrFD6MFZwnHAhE5KgCAB pHYqnHFPoqto2KuPoXm1gtT VyeTcyMFxwYXJkXHBsYWluX YPbWkKaXt61GQOkirEzen9a ZFxwYXJ9 Gross assessment was [facility] performed at ([facility], code = 2777) Department of Pathology, [address] [place] [address], [facility] [id number] 15:09:02Surgical Pathology Report Case: [id number] Authorizing Provider: Faina George MD Collected: 05/05/2023 08:52 AM Ordering Location: [facility] Received: 05/05/2023 12:10 PM SERVICES Pathologist: Jimbo Ortiz MD Specimen: Explant, Hardware for ID Hardware, explant (for gross examinationonly):- Hardware identified, please see gross description. Signing Pathologist Direct Phone Line: [phone] [id number] displaced bicondylar fracture of right tibia, initial encounterA. ExplantReceived fresh labeled with the patient's name, accession number and "hardware" are 9 metallic haynes threaded screws that range from 3.0-6.4 cm in length by 0.4 cm in diameter, and a 12.7 x 3.8 x 0.3 cm metallic haynes, T-shaped fenestrated plate. The following inscription is identified:[id number] gross photograph is taken. No sections are submitted. This case is for gross examination only.ABDELRAHMAN Coates, HT (ASCP)Not performedBaylor [facility], Department of Pathology, [address] [place] [address], EN FLUORO NON-SPECIFIC UP TO 1 [id number] 12:52:39 [facility] : 1975 Sex: FThis is a non- reportable study with no Radiologist dictation. Please refer to your PACS to review images, or Doc Flowsheets for documentation on studies without images. POCT , [id number] 06:25:00 Test Item Value Reference Range Interpretation Comments Test Urine, POC (test Negative code = 4324404) Control line present?, POC (test Yes code = 3555950) Background clear?, POC (test code Yes = 8393206) UPT Cassette Lot #, POC (test code 911198 = 8235413) UPT Cassette Expiration Date, POC 2024-04-13 (test code = 7028474) [facility] , [id number] 06:25:00 Test Item Value Reference Range Interpretation Comments Test Urine, POC (test Negative code = 7201871) Control line present?, POC (test Yes code = 3192409) Background clear?, POC (test code Yes = 1059060) UPT Cassette Lot #, POC (test code 312691 = 2095394) UPT Cassette Expiration Date, POC 2024-04-13 (test code = 8083768) [facility] , [id number] 06:25:00 Test Item Value Reference Range Interpretation Comments Test Urine, POC (test Negative code = 9204417) Control line present?, POC (test Yes code = 4463375) Background clear?, POC (test code Yes = 5468201) UPT Cassette Lot #, POC (test code 048808 = 8692525) UPT Cassette Expiration Date, POC 2024-04-13 (test code = 0296818) [facility] , [id number] 06:25:00 Test Item Value Reference Range Interpretation Comments Test Urine, POC (test Negative code = 7342323) Control line present?, POC (test Yes code = 0569822) Background clear?, POC (test code Yes = 3284081) UPT Cassette Lot #, POC (test code 700622 = 1557499) UPT Cassette Expiration Date, POC 2024-04-13 (test code = 7906525) [facility]
[2023-06-21] MEDS ORDERED: ACETAMINOPHEN 500 MG TAB PO PRN (17:39)
[2023-06-21] MEDS ORDERED: ACETAMINOPHEN 325 MG TABLET PO PRN (17:40)
[2023-06-21] MEDS ORDERED: MELATONIN 3 MG TABLET PO PRN (17:54)
[2023-06-21 19:09] LABS: Specific Gravity 1.007 (1.005-1.030); Urine Bacteria <20 /HPF (<20); Urine Bilirubin NEGATIVE (Negative); Urine Blood Negative (Negative); Urine Clarity Turbid (Clear); Urine Color Colorless (Yellow); Urine Glucose NEGATIVE (Negative); Urine Mucus Slight /HPF (None Seen); Urine Protein NEGATIVE (Negative); Urine RBC <5 /HPF (None Seen); Urine Urobilinogen Normal (Normal)
[2023-06-21] MEDS: GABAPENTIN 300 MG CAP PO SCH (19:49)
[2023-06-21] MEDS: APIXABAN 2.5 MG TABLET PO SCH (19:49)
[2023-06-21] MEDS: DOCUSATE NA 100 MG CAP PO SCH (19:49)
[2023-06-21 20:18] VITALS: BMI 33.4
[2023-06-22] MEDS: TRAMADOL HCL 50 MG TAB PO PRN ×4 (02:03→21:32)
[2023-06-22 04:30] LABS: Absolute Lymphocytes (CBC) 2.8 K/uL (0.7-4.9); Hematocrit 29.6 % (36.0-45.0); Lymphocytes % 42.9 % (15.3-44.8); MCV 82.7 fL (80-100); MPV 8.6 fL (7.6-11.3); Platelets 341 thou/uL (152-406); RBC Red Blood Cell Count 3.58 M/uL (3.86-4.86)
[2023-06-22 05:07] LABS: Albumin 2.4 g/dL (3.4-5.0); Potassium 3.7 mEq/L (3.5-5.1); Prealbumin 17.1 mg/dL (20-40)
[2023-06-22] MEDS: LEVOTHYROXINE SOD 0.088 MG TAB PO SCH (06:31)
[2023-06-22] MEDS ORDERED: ASPIRIN 325 MG TAB PO SCH (08:00)
[2023-06-22] MEDS: DOCUSATE NA 100 MG CAP PO SCH ×2 (08:00→19:54)
[2023-06-22] MEDS: GABAPENTIN 300 MG CAP PO SCH ×3 (08:01→19:54)
[2023-06-22] MEDS: ASPIRIN 81 MG CHEWABLE TABLET PO SCH (08:01)
[2023-06-22] MEDS: APIXABAN 2.5 MG TABLET PO SCH ×2 (08:01→19:54)
[2023-06-22] MEDS ORDERED: MECLIZINE HCL 12.5 MG TAB PO PRN (14:50)
[2023-06-22] MEDS: ENSURE HIGH PROTEIN 237 ML CAN PO SCH (19:55)
--- NOTE | 2023-06-23 00:01 | HP ---
Date of Admission: 06/21/2023 Time Of Service: 12 noon. Chief Complaint: "I broke my ankle and I have a lot of pain." History Of Present Illness: Ms. Gomez is a 47-year-old, right-handed, patient with a hist ory of drug abuse, tobacco abuse, COVID-19 infection, thyroid disease, and class 2 obesity, who fell and suffered a right tibial plateau fracture. She had open reduction and internal fixation on March 292022, in [place]. She had a subsequent revision of the surgery with the lateral meniscus re pair and deep implant removal on 05/05/2023 at [facility]. She came back to [facility] with concern for possible infection at the surgical site. Surgical in fection was confirmed that she received right knee I and D with incisional wound VAC and IV antibioti cs. The wound VAC was successfully removed. However, she still was extremely anxious when the leg w as touched and required excessive amount of encouragement to begin to mobilize the right leg. Meanwh ile, she has been bedridden most of this time. She required continuous monitoring of her labs and in cision to prevent further infections and complications such as deep vein thrombosis. She noted that during the time she was hospitalized, she really had not had much therapy and the lower extremity on the right where it is the right ankle become extremely stiff. Prior to that, she was very active pe rson walking 10 miles a day and riding her bike regularly living independently and without any kind o f assistive device. Currently, as a result of her long hospitalization and right bicondylar tibial p lateau fracture, she requires moderate assistance for bed mobilization, maximum assistance for stand, transfer and she is currently unable to ambulate due to significant pain in both the lower extremiti es and upper extremity with more weakness of course in the right lower extremity and pain there. She does require 24/7 evaluation and management for pain, regarding anemia and infection. Hemoglobin is 10.9. She will require 24-hour nursing to help address this issue including wound care and when it is time to remove sutures and to prevent any further infection again. She is currently nonweightbear ing in the right lower extremity and has strength in the upper extremities to begin to mobilize safel y. As a result, she is determined to be an appropriate candidate for aggressive inpatient rehabilita tion, is now admitted to the inpatient rehabilitation unit for physical and occupational therapy. Past Medical History: COVID-19 in 2020. She was noted to be a smoker, has thyroid disease with thyr oid ablation. Past Surgical History: She has had endometrial bladder surgery with I and D that was complicated by postop wound infection. She had tibial plateau surgery on 05/05/2023. Allergies: PENICILLIN, CEPHALOSPORIN, AND SULFA. Current Medications: Tylenol Extra Strength 500 mg every 6 hours as needed, Eliquis 2.5 mg twice ann ly, aspirin 81 mg daily, Colace 100 mg twice daily gabapentin 300 mg 3 times daily, levothyroxine 0.0 88 mg per orally daily melatonin 3 mg at bedtime, and tramadol 50 mg every 4 hours as needed. Family History: Noncontributory. Social History: Patient used alcohol, tobacco, or IV drugs in the past. No current use of those. Laboratory Studies: White blood cell count 6.6, hemoglobin 10.2, platelets 341. Prealbumin 17.1, al bumin 2.4. Sodium 139, potassium 3.7, chloride 107, carbon dioxide 28, BUN 12, creatinine 0.87, gluc ose 110, calcium 8.7. Magnesium 2.0. Urinalysis is turbid clarity, 500 esterase, otherwise negative . Review of Systems: She currently reports when lying in the bed, no significant pain, but when trying to transfer, signif icant pain up to 8 or so or more in the right lower extremity where there is a fracture. Also, repor ts diffuse weakness in upper and lower extremities and she does have what she says is vertigo symptom s where she has difficulty sitting up as she has been lying for now several weeks, actually few month s and the room tends to spin and turn and twist about her. She is very reluctant to take medications given her history of drug use in the past. Otherwise, no fevers, chills. Mild myalgias, arthralgia s. No rash. No genitourinary or gastrointestinal issues. No dermatological issues. Physical Examination: Vital Signs: Blood pressure 103/68, pulse of 80, respiratory rate 16, temperature 97.2, oxygen satur ation 96%. Weight 194 pounds, height 5 feet 4 inches, BMI 33.4, class 1 obesity. General: Ms. Gomez is resting in bed, covers pulled up. Says she is somewhat cold. HEENT: She is normocephalic, atraumatic. Sclerae anicteric. Oropharynx is pink and moist. Neck: Supple. Chest: Clear. Heart: Regular. Extremities: Show mild postoperative change in edema in the right lower extremity, otherwise no carlos a in the left side. Neurological: Alert and oriented to situation, place, and person. Follows commands appropriately. Her cranial nerves 2-12 show no deficits. Motor exam: Mildly diffusely weak in upper extremities, b ut no focal weakness there. In terms of her lower extremity on the right, she has some giveaway leandra use of the pain in the right ankle. Otherwise on the left at least 4/5. Sensory exam intact. Coord ination intact. Current Level Of Functioning: Currently, set up assistance for eating, supervision for oral hygiene, maximal assist for toileting, showering. Also, maximum assistance with upper body dressing, moderat e assistance for lower body dressing, moderate assistance for donning and doffing footwear, maximal a ssistance left and right rolling and awccy-[id number]. Requires moderate assistance lying to sit. Mode rate assistance required going from chair to bed. Moderate assistance for toileting. Moderate jeremie tance, she is dependent for ambulation only 1 foot with a rolling walker. Rehab And Medical Assessment And Plan: Ms. Gomez is admitted to the rehabilitation unit with an imp airment category of 09 orthopedic and her impairment group code is 08.9. All other orthopedic her et iologic diagnosis is right bicondylar tibial plateau fracture. Other comorbidities are decreased mob ility, decrease in physical functioning, edema, hypotension, class 1 obesity, pain, anemia, and recen t surgical site infection. She has vertigo especially when sitting up in bed with room tilting. No nausea and vomiting. Plan: 1.The patient will have physical and occupational therapy for 3 hours a day, 5/7 days. 2.She will have as needed extra-strength Tylenol and tramadol for pain. 3.DVT prophylaxis with Eliquis 2.5 mg twice daily. 4.Stroke risk reduction aspirin 81 mg daily. 5.Colace 100 mg twice daily for constipation. 6.Gabapentin 300 mg 3 times daily for neuropathic pain. 7.Synthroid 0.088 mg daily for hypothyroidism. 8.Meclizine 12.5 mg daily for her vertigo. 9.Melatonin for insomnia. 10.Again, tramadol for pain. Impact Of Comorbidities: Currently, the vertigo is making it somewhat difficult for her to stand and ambulate as she is worried about the vertigo and the sense that she will fall. In addition, she is significantly debilitated and has to work hard at regaining strength. She will have incentive spirom etry to help out of bed mobilization exercises. Rehab Specific Plan: 1.Ms. Gomez will have physical and occupational therapy for 3 hours a day, 5/7 days to improve her ability to transfer from bed to toilet, to chair, to shower and to begin to ambulate, to get to 250 f eet with modified independence, up and down 10 steps with modified independence and propel a wheelcha ir 250 feet with modified independence. 2.She will have shelter to address all of her comorbid issues and blood draws for infection per medication administration and nutrition evaluation and management. 3.Ms. Gomez has good understanding of the benefits of inpatient rehabilitation and she has a good p otential to improve and will require at least physical and occupational therapy. In addition, servic es from the nutrition service, wound care service, and pulmonary service if need be will be consulted . Given her complex medical condition and risk of further complications, rehabilitation cannot be sa luis or effectively provided at a lower level of care such as shelter. Barriers To Discharge: Currently, she has significant pain and very, very weak, unable to stand at a ll. May require a prolonged period of recovery as she has been down since March and now in May. She otherwise has had a history of COVID, may have some pulmonary limitations as well. Estimated Length Of Stay: About 12-14 days. Disposition: Home with family. Prognosis: Good. Rehabilitation Goals: 1.Independent with upper and lower body dressing. 2.Independent with transferring from bed to chair, to toilet, to shower. 3.Independent with ambulating 250 feet with a rolling walker. 4.Independent with going up and down 10 steps. 5.Independent with propelling wheelchair 250 feet. 6.Independent with all cognitive functioning. 7.All of her medical conditions will be managed adequately. 8.The above goals were reviewed with Ms. Gomez and she is in agreement. By signing this document, I acknowledge I personally performed a full physical examination on Ms. Amber Gomez no later than 24 hours after her admission to the inpatient rehabilitation facility and determined that she is able to tolerate the above course of treatment at an intensive level for reaso nable period of time. A detailed individualized plan of care for her will be completed by [facility] based on the preadmission screen, history and physical, and therapy evaluations. VEENA Voice ID: [id number]
[2023-06-23] MEDS: TRAMADOL HCL 50 MG TAB PO PRN ×4 (01:47→22:47)
[2023-06-23] MEDS: LEVOTHYROXINE SOD 0.088 MG TAB PO SCH (06:39)
[2023-06-23] MEDS: ENSURE HIGH PROTEIN 237 ML CAN PO SCH ×2 (07:55→20:00)
[2023-06-23] MEDS: LIDOCAINE 4% PATCH TOP SCH (07:55)
[2023-06-23] MEDS: DOCUSATE NA 100 MG CAP PO SCH ×2 (07:55→20:15)
[2023-06-23] MEDS: GABAPENTIN 300 MG CAP PO SCH ×3 (07:55→20:15)
[2023-06-23] MEDS: APIXABAN 2.5 MG TABLET PO SCH ×2 (07:55→20:15)
[2023-06-23] MEDS: ASPIRIN 81 MG CHEWABLE TABLET PO SCH (07:55)
[2023-06-23] MEDS ORDERED: DIPHENHYDRAMINE 25 MG TAB/CAP PO PRN (12:11)
[2023-06-23] MEDS ORDERED: DIAZEPAM 5 MG TABLET PO PRN (12:11)
[2023-06-23] MEDS ORDERED: HYDROCODONE/APAP 10/325 TAB PO PRN (12:13)
[2023-06-23] MEDS ORDERED: ONDANSETRON 4 MG (ODT) TAB PO PRN (12:15)
[2023-06-23] MEDS: DOXYCYCLINE 100 MG CAP PO SCH ×2 (12:57→20:15)
[2023-06-23] MEDS: levoFLOXacin 750 MG TAB PO SCH (12:57)
[2023-06-23] MEDS ORDERED: levoFLOXacin 750 MG TAB PO SCH (13:00)
[2023-06-23] MEDS ORDERED: DOXYCYCLINE 100 MG CAP PO SCH (13:00)
--- NOTE | 2023-06-23 22:14 | PN ---
Date of Progress Note: 06/23/2023 Time Of Service: 1:40 p.m. Subjective: Ms. Gomez is doing therapy. She did report significant pain in the right upper extremi ty, but she still was able to stand and begin to ambulate. Pain medications were on board. She did have some spasms in the right lower extremity, where she has the ankle fracture and surgery and knee infection. Again, significant pain, but multiple medications are on board and she is doing well. Review of Systems: Some myalgias, arthralgias, and pain in the right lower extremity with some swelling, which is on the right leg, it is bandaged. There is again some mild edema there. Physical Examination: Vital Signs: Blood pressure 110/65, pulse 89, respiratory rate 18, temperature 98.0, oxygen saturati on 97%. Extremities: Ms. Gomez does have some swelling in the right lower extremity, which is bandaged. Cindy bustamante does have a right bicondylar tibial plateau fracture and she did remain somewhat in pain, as she wa s getting out of bed to begin to ambulate with a rolling walker. She is able to bear some weight on the left lower extremity and use the arms as she mobilizes. She denied any vertigo, which was an iss ue, as she had been in bed for few months before she was able to begin to sit up and had v ertigo yesterday, but that is much better. She does not want medications for vertigo or many medicat ions for pain, but is willing to take the gabapentin. Laboratory Studies: White blood cell count 6.6, hemoglobin 10.2, platelets 341. Sodium 139, potassi um 3.7, chloride 107, carbon dioxide 28, BUN 12, creatinine 0.87, prealbumin 17.1, albumin 2.4. X-ray/imaging: No new x-rays or imaging. Medications: Tylenol Extra Strength 500 mg every 6 hours, [place] 10/325 every 6 hours as needed, Eliq uis 2.5 mg twice daily, aspirin 81 mg daily, Valium 5 mg every 8 hours as needed, Benadryl 25 mg ever y 6 hours as needed, Colace 100 mg twice daily, Vibramycin 100 mg twice daily, gabapentin 300 mg 3 ti mes daily, Levaquin 750 mg daily, levothyroxine 0.088 mg daily, lidocaine patch to apply topically da harleen as needed, Antivert 12.5 mg every 6 hours as needed, melatonin 3 mg at bedtime, Ensure Enlive 237 mL twice daily, Zofran 4 mg every 4 hours, tramadol 50 mg every 4 hours as needed. Current Functional Status: Today, with occupational therapy, ehd-of-jjykf done with contact guard as sistance, supervision for bathing and upper body dressing, maximal for lower body dressing. With phy sical therapy, she did tljlxd-lp-[id number] transfers with maximum assistance, pfo-ru-byxox transfers from w heelchair with maximum to moderate assistance. She was able to ambulate 15-20 feet 6 times with mini mum assistance. Emphasis was nonweightbearing status in the right lower extremity. She self-propell ed wheelchair 250 feet with standby assistance. Progress Towards Rehabilitation Goals: Ms. Gomez is making very good progress towards the rehabilit ation goals of being able to transfer with modified independence to be able to ambulate 150 to 250 fe et with modified independence using a rolling walker and nonweightbearing status of right lower extre mity. Also to mobilize a wheelchair 250 feet with modified independence. Currently, difficult for h er to go up and down steps, but will be attempting that as well. May be to do with minimum assistanc e. Assessment: Ms. Gomez is a 47-year-old patient, admitted to the rehabilitation unit with a right bi condylar tibial plateau fracture after a fall. She has had a prolonged hospitalization and became de bilitated. She has hypotension, asthma, obesity, anemia, and decrease in physical functioning along with vertigo, which is resolving. Plan: 1.Continue with physical and occupational therapy for 3 hours a day, 5 of 7 days. 2.She has multiple comorbid conditions, which are listed and her medications also were listed and th ose are going to be continued. Comorbidities That Continue To Impact Her Rehabilitation: At this point, pain is the biggest issue, but she has multiple medications including neuromodulators, narcotics, medications, muscle relaxants that are now helping and those will be used sparingly as she improves. LB/MODL Voice ID: [id number] Report ID: [id number]
[2023-06-24] MEDS: TRAMADOL HCL 50 MG TAB PO PRN ×2 (05:16→10:10)
[2023-06-24] MEDS: LEVOTHYROXINE SOD 0.088 MG TAB PO SCH (06:35)
[2023-06-24] MEDS: DOCUSATE NA 100 MG CAP PO SCH ×2 (07:01→20:01)
[2023-06-24] MEDS: GABAPENTIN 300 MG CAP PO SCH (07:01)
[2023-06-24] MEDS: APIXABAN 2.5 MG TABLET PO SCH ×2 (07:01→20:01)
[2023-06-24] MEDS: DOXYCYCLINE 100 MG CAP PO SCH ×2 (07:01→20:01)
[2023-06-24] MEDS: LIDOCAINE 4% PATCH TOP SCH (07:02)
[2023-06-24] MEDS: ASPIRIN 81 MG CHEWABLE TABLET PO SCH (07:02)
[2023-06-24] MEDS: ENSURE HIGH PROTEIN 237 ML CAN PO SCH ×2 (07:02→20:00)
[2023-06-24] MEDS: levoFLOXacin 750 MG TAB PO SCH (07:02)
[2023-06-24] MEDS: GABAPENTIN 400 MG CAP PO SCH ×2 (13:52→20:02)
[2023-06-24] MEDS: NAPROXEN 250 MG TAB PO PRN (13:56)
[2023-06-25 04:25] LABS: Absolute Lymphocytes (CBC) 2.8 K/uL (0.7-4.9); Hematocrit 29.6 % (36.0-45.0); Lymphocytes % 47.1 % (15.3-44.8); MPV 9.1 fL (7.6-11.3); Platelets 308 thou/uL (152-406); RBC Red Blood Cell Count 3.57 M/uL (3.86-4.86)
[2023-06-25 04:44] LABS: Albumin 2.4 g/dL (3.4-5.0); Magnesium 2.2 mg/dL (1.6-2.4); Potassium 3.9 mEq/L (3.5-5.1); Prealbumin 14.9 mg/dL (20-40)
[2023-06-25] MEDS: TRAMADOL HCL 50 MG TAB PO PRN (05:36)
[2023-06-25] MEDS: LEVOTHYROXINE SOD 0.088 MG TAB PO SCH (05:36)
[2023-06-25] MEDS: LIDOCAINE 4% PATCH TOP SCH (08:00)
[2023-06-25] MEDS: APIXABAN 2.5 MG TABLET PO SCH ×2 (08:00→20:07)
[2023-06-25] MEDS: ASPIRIN 81 MG CHEWABLE TABLET PO SCH (08:00)
[2023-06-25] MEDS: DOXYCYCLINE 100 MG CAP PO SCH ×2 (08:00→20:07)
[2023-06-25] MEDS: ENSURE HIGH PROTEIN 237 ML CAN PO SCH ×2 (08:00→20:00)
[2023-06-25] MEDS: levoFLOXacin 750 MG TAB PO SCH (08:00)
[2023-06-25] MEDS: DOCUSATE NA 100 MG CAP PO SCH ×2 (08:00→20:07)
[2023-06-25] MEDS: GABAPENTIN 400 MG CAP PO SCH ×3 (08:46→20:07)
[2023-06-25] MEDS: NAPROXEN 250 MG TAB PO PRN ×3 (09:05→22:10)
--- NOTE | 2023-06-25 21:41 | PN ---
Date of Progress Note: 06/25/2023 Ylkl-ba-[id number] Progress Note Visit. Time Of Service: 1:45 p.m. Subjective: Ms. Gomez is in the wheelchair going down the scott. She is actually doing much better, ready for her silver to be removed. She said the pain is much better managed. She is feeling very well about her progress so far with her therapy. Review of Systems: Mild myalgias, arthralgias in the left lower extremity and some swelling, the foot especially is show ing slight improvement. She does have good hemostasis. The area is bandaged well. Physical Examination: Vital Signs: Blood pressure 108/57, pulse 93, respiratory rate 17, temperature 97.2, oxygen saturati on 100%. General: Ms. Gomez is resting comfortably. HEENT: She is normocephalic, atraumatic. Sclerae anicteric. Oropharynx is pink and moist. Neck: Supple. Chest: Clear. She does have mild to moderate edema in the left lower extremity, well bandaged at th e ankle and leg area with areas that are exposed showing no evidence of hyperemia and she does not matthews ve any tenderness in that area to suggest a deep vein thrombosis. Laboratory Studies: White blood cell count 5.9, hemoglobin 10, platelets 308. Sodium 138, potassium 3.9, chloride 105, carbon dioxide 30, BUN 19, creatinine 0.81, prealbumin 14.9, albumin 2.4. X-ray/imaging: No new x-rays or imaging. Medications: Medications have been reviewed and remain unchanged. Current Functional Status: Today, she propelled a wheelchair 250 feet with contact guard assistance, bed mobility from tqyysz-ha-eyg with moderate assistance. Completed www-bo-qbrot transfers and ryan d-to-pivot transfers with moderate assistance. With her occupational therapy, zog-zp-dbjwu with ryan dby assistance, ibp-wq-qcohfd with standby assistance. Toileting with contact guard to standby jeremie dow. Progress Towards Rehabilitation Goals: Ms. Gomez is making good progress so far, with her pain is n ow better managed with her ability to mobilize with a wheelchair very well, which she is supposed to be independent on that and she is beginning to ambulate very short distances, but still has significa nt limitations of pain in the lower extremity on the left side. Cognitive functioning is doing very well and her ability to do toileting and showering and dressing also improving from contact guard. Assessment: Ms. Gomez is a 47-year-old patient in the rehabilitation unit with a right bicondylar t ibial plateau fracture after falling. She is also debilitated after prolonged hospitalization. She had hypotension, asthma, obesity, anemia, and vertigo. Her vertigo is resolving. Plan: 1.Continue with physical and occupational therapy for 3 hours a day, 5 of 7 days. 2.She has comorbid conditions which are listed and are managed by continuing her current medications . Comorbidities That Continue To Impact Rehabilitation: At this point, pain is better managed. She is using less narcotics as gabapentin was adjusted and dosage now of her gabapentin is 400 mg 3 times d aily. She is continued with Levaquin 750 mg daily and Synthroid along with medication for pain, whic h is the tramadol and [place] as needed and Valium as needed for anxiety. DOMINGUEZ/CLAUS Voice ID: [id number] Report ID: [id number]
[2023-06-26] MEDS: LEVOTHYROXINE SOD 0.088 MG TAB PO SCH (05:33)
[2023-06-26] MEDS: NAPROXEN 250 MG TAB PO PRN ×4 (07:03→22:34)
[2023-06-26] MEDS: ENSURE HIGH PROTEIN 237 ML CAN PO SCH ×2 (08:00→20:15)
[2023-06-26] MEDS: LIDOCAINE 4% PATCH TOP SCH (08:28)
[2023-06-26] MEDS: ASPIRIN 81 MG CHEWABLE TABLET PO SCH (08:31)
[2023-06-26] MEDS: APIXABAN 2.5 MG TABLET PO SCH ×2 (08:31→20:14)
[2023-06-26] MEDS: DOCUSATE NA 100 MG CAP PO SCH ×2 (08:31→20:14)
[2023-06-26] MEDS: levoFLOXacin 750 MG TAB PO SCH (08:32)
[2023-06-26] MEDS: GABAPENTIN 400 MG CAP PO SCH ×3 (08:32→20:14)
[2023-06-26] MEDS: DOXYCYCLINE 100 MG CAP PO SCH ×2 (08:32→20:14)
--- NOTE | 2023-06-26 14:08 | P.RH.PN ---
Estimated Length of Stay: 13 Expected Discharge Date: 07/03/23 Discharge Disposition Plan: Home Family Support: Yes [facility] Goal: Mobility, Transfers, Self Care Vital Signs: Last Vital Signs Temp 96.8 F 06/26/23 07:18 Pulse 100 H 06/26/23 07:18 Resp 19 06/26/23 07:18 BP 109/71 06/26/23 07:18 Pulse Ox 96 06/26/23 07:18 Laboratory: Laboratory Last Values WBC 5.90 thou/uL (4.3-10.9) 06/25/23 03:16 RBC 3.57 M/uL (3.86-4.86) L 06/25/23 03:16 Hgb 10.0 g/dL (12.0-15.0) L 06/25/23 03:16 Hct 29.6 % (36.0-45.0) L 06/25/23 03:16 MCV 83.0 fL (80-100) 06/25/23 03:16 MCH 28.1 pg (27.0-35.0) 06/25/23 03:16 MCHC 33.9 g/dL (32.0-36.0) 06/25/23 03:16 RDW 15.2 % (12.1-15.2) 06/25/23 03:16 Plt Count 308 thou/uL (152-406) 06/25/23 03:16 MPV 9.1 fL (7.6-11.3) 06/25/23 03:16 Neutrophils % 37.1 % (41.7-73.7) L 06/25/23 03:16 Lymphocytes % 47.1 % (15.3-44.8) H 06/25/23 03:16 Monocytes % 9.5 % (3.3-12.3) 06/25/23 03:16 Eosinophils % 5.8 % (0-4.4) H 06/25/23 03:16 Basophils % 0.5 % (0-1.3) 06/25/23 03:16 Absolute Neutrophils 2.2 K/uL (1.8-8.0) 06/25/23 03:16 Absolute Lymphocytes 2.8 K/uL (0.7-4.9) 06/25/23 03:16 Absolute Monocytes 0.6 K/uL (0.1-1.3) 06/25/23 03:16 Absolute Eosinophils 0.3 K/uL (0-0.5) 06/25/23 03:16 Absolute Basophils 0.0 K/uL (0-0.5) 06/25/23 03:16 Sodium 138 mEq/L (136-145) 06/25/23 03:16 Potassium 3.9 mEq/L (3.5-5.1) 06/25/23 03:16 Chloride 105 mEq/L (98-107) 06/25/23 03:16 Carbon Dioxide 30 mEq/L (21-32) 06/25/23 03:16 Anion Gap 6.9 mEq/L (5.0-15.0) 06/25/23 03:16 BUN 19 mg/dL (7-18) H 06/25/23 03:16 Creatinine 0.81 mg/dL (0.55-1.02) 06/25/23 03:16 Est GFR (CKD-EPI) 91 ml/min (=/>90) 06/25/23 03:16 Glucose 101 mg/dL (74-106) 06/25/23 03:16 Calcium 8.5 mg/dL (8.5-10.1) 06/25/23 03:16 Magnesium 2.2 mg/dL (1.6-2.4) 06/25/23 03:16 Albumin 2.4 g/dL (3.4-5.0) L 06/25/23 03:16 Prealbumin 14.9 mg/dL (20-40) L 06/25/23 03:16 Urine Color Colorless (Yellow) 06/21/23 18:20 Urine Clarity Turbid (Clear) H 06/21/23 18:20 Urine pH 7.0 (5.0-7.0) 06/21/23 18:20 Ur Specific [place] 1.007 (1.005-1.030) 06/21/23 18:20 Glucose (UA)(Auto) Negative (Negative) 06/21/23 18:20 Urine Ketones Negative (Negative) 06/21/23 18:20 Urine Blood Negative (Negative) 06/21/23 18:20 Urine Nitrite Negative (Negative) 06/21/23 18:20 Urine Bilirubin Negative (Negative) 09/24/23 18:20 Urine Urobilinogen Normal (Normal) 06/21/23 18:20 Ur Leukocyte Esterase 500 Nisha/uL (Negative) H 06/21/23 18:20 Urine RBC <5 /HPF (None Seen) 06/21/23 18:20 Urine WBC 5-10 /HPF (<5) 06/21/23 18:20 Ur Squamous Epith Cells <5 /HPF (None Seen) 06/21/23 18:20 Urine Bacteria <20 /HPF (<20) 06/21/23 18:20 Urine Mucus Slight /HPF (None Seen) 06/21/23 18:20 Urine Culture Reflexed Not needed 06/21/23 18:20 Urine Total Protein Negative (Negative) 06/21/23 18:20 Weight: 194 lb 9.6 oz Wound Present: No Closed Surgical Incision Present: Yes Negative Pressure Wound Therapy Present: No Physician Update: Mild decrease in prealbumin to 14 from 17. Pain is 6/10 on right leg. Multimodality pain medications including gabapentin, aleve and magnesium. Right leg swelling with wrap in place. Summary: Patient's care plan and reimbursement representative goals have been reviewed and revised as necessary. Please see the Rehabilitation Signature page for all necessary signatures.
--- NOTE | 2023-06-26 18:31 | RAD REPORT ---
EXAM DESCRIPTION: US - Extremity Venous Uni Ltd - 06/26/2023 5:38 pm CLINICAL HISTORY: Swelling COMPARISON: None. TECHNIQUE: Real-time sonographic evaluation of the right lower extremity deep venous system was perf ormed. FINDINGS: Normal compressibility, flow augmentation, phasic flow and spontaneous flow is identified in the right lower extremity deep venous system. No intraluminal filling defects seen. IMPRESSION: No DVT in the right lower extremity.
[2023-06-27] MEDS: LEVOTHYROXINE SOD 0.088 MG TAB PO SCH (06:24)
[2023-06-27] MEDS: LIDOCAINE 4% PATCH TOP SCH (07:25)
[2023-06-27] MEDS: levoFLOXacin 750 MG TAB PO SCH (07:25)
[2023-06-27] MEDS: GABAPENTIN 400 MG CAP PO SCH ×3 (07:26→20:10)
[2023-06-27] MEDS: ENSURE HIGH PROTEIN 237 ML CAN PO SCH ×2 (07:26→20:10)
[2023-06-27] MEDS: ASPIRIN 81 MG CHEWABLE TABLET PO SCH (07:26)
[2023-06-27] MEDS: APIXABAN 2.5 MG TABLET PO SCH ×2 (07:26→20:10)
[2023-06-27] MEDS: DOCUSATE NA 100 MG CAP PO SCH ×2 (07:26→20:10)
[2023-06-27] MEDS: DOXYCYCLINE 100 MG CAP PO SCH ×2 (07:26→20:10)
[2023-06-27] MEDS: NAPROXEN 250 MG TAB PO PRN ×3 (07:58→20:14)
[2023-06-28] MEDS: TRAMADOL HCL 50 MG TAB PO PRN ×2 (00:47→08:47)
[2023-06-28] MEDS: ENSURE HIGH PROTEIN 237 ML CAN PO SCH ×2 (08:00→19:42)
[2023-06-28] MEDS: APIXABAN 2.5 MG TABLET PO SCH ×2 (08:46→19:42)
[2023-06-28] MEDS: LEVOTHYROXINE SOD 0.088 MG TAB PO SCH (08:46)
[2023-06-28] MEDS: GABAPENTIN 400 MG CAP PO SCH ×2 (08:46→14:01)
[2023-06-28] MEDS: ASPIRIN 81 MG CHEWABLE TABLET PO SCH (08:46)
[2023-06-28] MEDS: levoFLOXacin 750 MG TAB PO SCH (08:46)
[2023-06-28] MEDS: DOCUSATE NA 100 MG CAP PO SCH ×2 (08:47→19:42)
[2023-06-28] MEDS: DOXYCYCLINE 100 MG CAP PO SCH ×2 (08:47→19:42)
[2023-06-28] MEDS: LIDOCAINE 4% PATCH TOP SCH (08:47)
[2023-06-28] MEDS: NAPROXEN 250 MG TAB PO PRN ×2 (09:55→15:56)
[2023-06-28] MEDS: GABAPENTIN 300 MG CAP PO SCH (19:42)
[2023-06-29] MEDS: LEVOTHYROXINE SOD 0.088 MG TAB PO SCH (06:36)
[2023-06-29] MEDS: GABAPENTIN 300 MG CAP PO SCH ×3 (07:24→19:56)
[2023-06-29] MEDS: NAPROXEN 250 MG TAB PO PRN ×3 (07:24→20:20)
[2023-06-29] MEDS: APIXABAN 2.5 MG TABLET PO SCH ×2 (07:27→19:55)
[2023-06-29] MEDS: DOXYCYCLINE 100 MG CAP PO SCH ×2 (07:27→19:56)
[2023-06-29] MEDS: DOCUSATE NA 100 MG CAP PO SCH ×2 (07:27→19:55)
[2023-06-29] MEDS: ASPIRIN 81 MG CHEWABLE TABLET PO SCH (07:27)
[2023-06-29] MEDS: levoFLOXacin 750 MG TAB PO SCH (07:27)
[2023-06-29] MEDS: ENSURE HIGH PROTEIN 237 ML CAN PO SCH ×2 (07:28→19:55)
[2023-06-29] MEDS: LIDOCAINE 4% PATCH TOP SCH (10:19)
--- NOTE | 2023-06-29 22:10 | PN ---
Date of Progress Note: 06/29/2023 Time Of Service: 01:45 p.m. Subjective: Ms. Gomez is doing very well. She is in the room, getting ready to do physical therapy . She is on wheelchair. She says the right lower extremity swelling is better, although there is st ill significant swelling. Also pain is well mitigated by gabapentin. Review of Systems: No fevers, chills, nausea, vomiting. No significant myalgias, arthralgias, rash, headache, or other complaints and again swelling in the right lower extremity and some pain as she tries to transfer and mobilize. Physical Examination: Vital Signs: Blood pressure 108/66, pulse 80, respiratory rate 16, temperature 97.2, oxygen saturati on 97%. General: Ms. Gomez is again sitting in a chair. She is normocephalic, atraumatic. Sclerae anicter ic. Oropharynx is pink and moist. Neck: Supple. Chest: Clear. Heart: Regular. LOWER EXTREMITY: She has moderate edema in the right lower extremity, especially in the foot and the n ankles and does have a wrapping around the ankle where she has a tibial plateau bicondylar flake fr acture. Laboratory Studies: White blood cell count 5.9, hemoglobin 10, prealbumin 14.9, creatinine 0.81. X-ray Imaging: On the she had a Doppler study done in the right lower extremity to rule out a d eep vein thrombus. The study was negative for deep vein thrombosis. Medications: Her medications have been reviewed and remain unchanged. She does have gabapentin, now put to 600 mg 3 times a day for the last few days. Over the weekend, it was increased from 400 mg 3 times a day to 600, which is made a significant difference in her pain management. Current Functional Status: Today, Ms. Gomez was able to do independently with bathing, upper and lo wer body dressing, toileting with no loss of balance. She pushed wheelchair 20 feet 3 times with res t breaks. She was standby assist for toilet transfers and for wheelchair to edge of bed. With physi zeny therapy, supine to sit transfers with minimum assistance, multiple [id number] transfers to edge of bed. With rolling walker she covered 100 feet and 75 feet and 45 feet 3 times with contact guard assistance. She mobilized wheelchair 250 feet independently. Progress Towards Rehabilitation Goals: Ms. Gomez is now making excellent progress towards her goals of becoming independent with upper and lower body dressing, transferring, toileting, ambulating 500 feet with modified independence and propelling a wheelchair now 500 feet with independence. She also work on going up steps with assistance her cognitive functioning, she will continue to pe rform independently. Assessment: Ms. Gomez is a 47-year-old patient in the rehabilitation unit with a right bicondylar t ibial plateau fracture. She is making good progress with her physical and occupational therapy. Her comorbid right lower extremity edema and pain from the ankle fracture is improving slowly. She has a class 2 obesity, hypotension, asthma, anemia, and vertigo. Plan: 1.Continue physical, occupational therapy 3 hours a day, 5 of 7 days. 2.Her comorbid condition medications are continued to address her comorbid conditions which are list ed. Comorbidities That Continue To Impact Rehabilitation: Currently, her pain is much better with gabape ntin 600 mg 3 times a day. That was the biggest limiting factor. She continues to finish off antibi otics and continues her Synthroid and decreasing the need for [place] and benzodiazepines. DOMINGUEZ/CLAUS Voice ID: [id number] Report ID: [id number]
[2023-06-30] MEDS: LEVOTHYROXINE SOD 0.088 MG TAB PO SCH (06:35)
[2023-06-30] MEDS: ENSURE HIGH PROTEIN 237 ML CAN PO SCH ×2 (07:48→19:42)
[2023-06-30] MEDS: NAPROXEN 250 MG TAB PO PRN ×3 (07:51→19:42)
[2023-06-30] MEDS: DOXYCYCLINE 100 MG CAP PO SCH ×2 (07:52→19:41)
[2023-06-30] MEDS: APIXABAN 2.5 MG TABLET PO SCH ×2 (07:52→19:42)
[2023-06-30] MEDS: levoFLOXacin 750 MG TAB PO SCH (07:52)
[2023-06-30] MEDS: GABAPENTIN 300 MG CAP PO SCH ×3 (07:52→19:41)
[2023-06-30] MEDS: DOCUSATE NA 100 MG CAP PO SCH ×2 (07:53→19:41)
[2023-06-30] MEDS: LIDOCAINE 4% PATCH TOP SCH (07:53)
[2023-06-30] MEDS: ASPIRIN 81 MG CHEWABLE TABLET PO SCH (08:08)
[2023-06-30] MEDS: TRAMADOL HCL 50 MG TAB PO PRN (10:12)
--- NOTE | 2023-07-01 00:15 | PN ---
Date of Progress Note: 06/30/2023 Time Of Service: 1:51 p.m. Subjective: Ms. Gomez is doing very well, much better than yesterday and the day before. She is in the gym, sitting in a chair as she is doing therapy. The right lower extremity shows less swelling and she has more range of motion in the foot and toes. She is happy with gabapentin, but this mornin g, she did have to take a tramadol. Review of Systems: Some mild myalgias in the right lower extremity, where there was an edema from ankle surgery. Otherw ise, no fevers or chills. No nausea or vomiting. Physical Examination: Vital Signs: Blood pressure 105/67, pulse 90, respiratory rate 17, temperature 97.2, oxygen saturati on 96%. General: Ms. Gomez is resting in chair. Neurologic: She has no focal deficits. Extremities: There is pain and weakness because of the right lower extremity recent surgery in the a nkles from her fracture. She is able to move that right foot better. She is nonweightbearing in the right lower extremity. Laboratory Studies: No new laboratory studies. X-ray/imaging: No new x-rays or imaging. Medications: Medications have been reviewed and remained unchanged. Current Functional Status: Today, she ambulated 130 feet, 100 feet, 75 feet, and 55 feet 4 times wit h standby assistance using a rolling walker. With occupational therapy, independent for supine to si t transfer, edge of bed to wheelchair transfer twice with a rolling walker and also independent. Alberto let transfer done twice independently. Progress Towards Rehabilitation Goals: Ms. Gomez is making great progress now towards her goals of becoming independent with upper body dressing, transferring, toileting, showering, and ambulating 250 feet with modified independence. She will work on going up and down steps as well with modified ind ependence and to continue performing cognitive functioning with modified independence. Assessment: Ms. Gomez is a 47-year-old patient, in the rehabilitation unit with a right bicondylar tibial plateau fracture status post surgical repair. She is making excellent progress so far with ph ysical and occupational therapy. She does have edema in the right lower extremity, which is improvin g. She has comorbidities of anemia, asthma, hypertension, obesity, and vertigo, which is improved. Plan: 1.Continue with physical and occupational therapy for 3 hours a day, 5 of 7 days. 2.She has multiple comorbid conditions, which are addressed by continuing medications as listed. Comorbidities That Continue To Impact Rehabilitation: Her pain is better controlled with gabapentin and tramadol as needed. She is taking much less [place] and she is very happy with that as she does no t want to take narcotic medications. DOMINGUEZ/CLAUS Voice ID: [id number] Report ID: [id number]
[2023-07-01] MEDS: LEVOTHYROXINE SOD 0.088 MG TAB PO SCH (06:22)
[2023-07-01 07:02] VITALS: BP 105/58; TEMP 96.8
[2023-07-01] MEDS: NAPROXEN 250 MG TAB PO PRN (07:25)
[2023-07-01] MEDS: LIDOCAINE 4% PATCH TOP SCH (07:25)
[2023-07-01] MEDS: levoFLOXacin 750 MG TAB PO SCH (07:26)
[2023-07-01] MEDS: DOCUSATE NA 100 MG CAP PO SCH (07:26)
[2023-07-01] MEDS: GABAPENTIN 300 MG CAP PO SCH (07:26)
[2023-07-01] MEDS: ASPIRIN 81 MG CHEWABLE TABLET PO SCH (07:26)
[2023-07-01] MEDS: DOXYCYCLINE 100 MG CAP PO SCH (07:26)
[2023-07-01] MEDS: APIXABAN 2.5 MG TABLET PO SCH (07:26)
[2023-07-01] MEDS: ENSURE HIGH PROTEIN 237 ML CAN PO SCH (07:27)
== END 2023-07-01 10:30 | disposition home health service (06) | DRG 561 ==
LOC: 5TH 16:45
PROVIDERS: ADMIT Psychiatry & Neurology Neurology with Special Qualifications in Child Neurology; ATTEND Psychiatry & Neurology Neurology with Special Qualifications in Child Neurology
DX: S82.141D Displaced bicondylar fracture of right tibia, subsequent encounter for closed fracture with routine healing (principal); F17.200 Nicotine dependence, unspecified, uncomplicated; I95.9 Hypotension, unspecified; E66.9 Obesity, unspecified; D64.9 Anemia, unspecified; K59.00 Constipation, unspecified; E03.9 Hypothyroidism, unspecified; R42 Dizziness and giddiness; G47.00 Insomnia, unspecified; R53.81 Other malaise; J45.909 Unspecified asthma, uncomplicated
CPT/HCPCS: 36415; 80048; 81001; 82040; 83735; 84134; 85025; 87086; 87088; 93971; 97010; 97110; 97116; 97161; 97530; 97542; J2001